=== PATIENT | female | born 1950 | race Caucasian/White ===

== ENCOUNTER 2025-01-16 18:24 | Inpatient (IN) | payer OTHER, SELFPAY ==
[2025-01-16] VITALS (21 sets, daily range): BP systolic 84–110; BP diastolic 32–67; BMI 41.7
--- NOTE | 2025-01-16 13:34 | ED.GENMED ---
History of Present Illness
General
Chief Complaint: Abdominal Pain
Source: patient
Exam Limitations: none
Time Seen by Provider: 01/16/25 13:33
Nursing documentation reviewed up to this point in time: agreed with
History of Present Illness
History of Present Illness:
Patient is a 74-year-old female presented with nausea vomiting constipation and weakness. She denies any prior bowel obstruction or surgery. She complains of a lot of nausea. She denies any fever or chills at home. She does complain of decreased
appetite and does not believe she is drinking enough.
Review of Systems
Review of Systems
Allergies reviewed?: Yes
All Other Systems: ROS reviewed and negative except as documented in HPI and ROS
Constitutional: Denies fever
Cardiac: Reports no symptoms
ABD/GI: Reports nausea, vomiting, constipated and anorexia
: Reports no symptoms
Musculoskeletal: Reports no symptoms
Skin: Reports no symptoms
Psychiatric: Reports no symptoms
Phy Exam
General Physical Exam
General Presentation: no apparent distress
General age: appears stated age
General Skin: warm and dry
General Habitus: elderly
General Mental: alert
General Hydration: dry mucous membranes
Cardiovascular Exam
Cardiovascular Exam: regular rate/rhythm, no murmur and normal peripheral pulses
Pulmonary Exam
Pulmonary Exam: lungs clear and no respiratory distress
Gastrointestinal Exam
Gastrointestinal Exam: soft and other (Nonspecific abdominal tenderness increase in left)
Neurological Exam
Neurological Exam: alert and oriented x3
Musculoskeletal Exam
Musculoskeletal Exam: full ROM
Skin Exam
Skin Exam: normal color and warm/dry
Psychiatric Exam
Psychiatric Exam: normal mood/affect
Course
Orders/Labs/Results
Orders:
Orders
01/16/25 Breakfast
Clear Liquid
At Your Request: Full Participation
Does patient need a safe tray?: No
01/16/25 13:35
IV Insert/Care/Rem.- Treatment PRN
01/16/25 13:53
Ondansetron Injectable [Zofran] 4 mg IV NOW STA
01/16/25 13:55
CT Abd/Pel (IV only)-DH only Urgent
Comment:
Reason For Exam: abd pain/n/v/ constipation
01/16/25 13:56
Electrocardiogram (*1) Stat
Reason for Study: Other
Other Reason for Exam: chest pain
Cardiac Monitoring- Treatment ONCE
EKG- Treatment ONCE
01/16/25 14:11
0.9% Sodium Chloride 1000 ml [Nss] 1,000 ml IV BOLUS
01/16/25 14:13
Complete Blood Count/With Diff Urgent
Comprehensive Metabolic Panel Urgent
Creatine Phosphokinase Urgent
Comment: ADD ON
Lipase Urgent
Troponin I Urgent
01/16/25 14:40
COVID-19 Antigen Urgent
Source: Nasal Swab
Influenza A+B Rapid Molecular Urgent
NIGHAT Source: Nasal Swab
Specimen Description:
01/16/25 16:48
Electrocardiogram (*1) Stat
Reason for Study: Other
Other Reason for Exam: chest pain
EKG- Treatment ONCE
0.9% Sodium Chloride 1000 ml [Nss] 1,000 ml IV BOLUS
01/16/25 16:49
Troponin I Urgent
01/16/25 18:04
Admit/Transfer Patient As Directed
Co-Sign Provider:
Level of Care: Inpatient admission
Assign to:: IMU- Intermediate Care
Physician / Group: Meg
Diagnosis: Sepsis, Colitis
Reason for Hospitalization: IVFs, IV abx
Expected length of stay greater than two midnights?: Yes
ELOS- Estimated Length of Stay in days: 3
I certify the patient meets the requirements for IP care: Yes
PRN Pain Medication Management As Directed
May give lesser potent ordered pain med per pt: Yes
preference::
Protocol:: Medication orders for pain may be administered in a
manner that supports deferring to patient preference
when the pt is:
- Requesting an ordered lesser potent pain medication.
Least to most potent pain medications are defined
as: acetaminophen < NSAID < tramadol < opioids
(morphine, oxycodone, hydromorphone).
- Requesting a lesser dose of the same medication IF
ORDERED.
- Requesting a less intrusive route of administration
if both routes are prescribed by the provider (PO <
IV).
01/16/25 18:05
Code Status As Directed
Resuscitation Status: Full Code
01/16/25 18:07
Pantoprazole [Protonix IV] 40 mg IV NOW STA
01/16/25 18:08
Add On- LAB Urgent
Tests Added?: CPK
01/16/25 18:09
0.9% Sodium Chloride [Nss (Preservative Free)] 10 ml IV NOW STA
01/16/25 18:17
PRN Pain Medication Management As Directed
May give lesser potent ordered pain med per pt: Yes
preference::
Protocol:: Medication orders for pain may be administered in a
manner that supports deferring to patient preference
when the pt is:
- Requesting an ordered lesser potent pain medication.
Least to most potent pain medications are defined
as: acetaminophen < NSAID < tramadol < opioids
(morphine, oxycodone, hydromorphone).
- Requesting a lesser dose of the same medication IF
ORDERED.
- Requesting a less intrusive route of administration
if both routes are prescribed by the provider (PO <
IV).
01/16/25 18:47
Lactic Acid Urgent
01/16/25 19:05
Blood Culture Q30M
NIGHAT Source: Blood/Venous
Specimen Description:
Blood Culture Q30M
NIGHAT Source: Blood/Venous
Specimen Description:
01/16/25 20:00
Urinalysis Reflex To Culture Urgent
Date Specimen was Collected: 01/16/25
Time Specimen was Collected: 15:08
CefTRIAXone [Rocephin] 1,000 mg IV Q24H
01/16/25 20:42
Acetaminophen [Tylenol] 650 mg PO Q4HPRN PRN
Ondansetron Injectable [Zofran] 4 mg IV Q6HPRN PRN
01/16/25 20:42
Activity As Directed
Activity Level: Out of Bed-Early Mobility
With Assistance
ECG as needed As Directed
ECG as needed for:: Chest Pain
I&O [Intake/ Output] As Directed
Frequency: q12h
Vital Signs As Directed
Frequency: Per unit guidelines
Weight As Directed
Frequency: Daily
Ot Eval And Treat Routine
Pt Eval And Treat Routine
Activity Level: Out of Bed-Early Mobility
DX Deep Vein Thrombosis Video Routine
01/16/25 22:00
MetroNIDAZOLE 500 MG/100 ML [Flagyl 500 mg] 100 ml IV Q8H
01/17/25 00:00
Heparin 5,000 units SC Q8
01/17/25 03:45
Urine Microscopic Reflex Cult Urgent
Urine Culture Urgent
NIGHAT Source: U
Specimen Description:
Date Specimen was Collected: 01/16/25
Time Specimen was Collected: 15:08
01/17/25 08:00
Pantoprazole [Protonix IV] 40 mg IV DAILY
01/17/25 08:09
Complete Blood Count/No Diff IN AM
Comprehensive Metabolic Panel IN AM
Hgba1c [Glycohemoglobin (HgbA1c)] IN AM
Magnesium IN AM
Abnormal Lab Results
01/16/25
14:13
WBC 11.2 H 10^3/uL
(4.8-10.8)
Abs Immat Gran (auto) 0.1 H 10^3/uL
(0-0.05)
Absolute Neuts (auto) 10.4 H 10^3/uL
(1.4-6.5)
Absolute Lymphs (auto) 0.4 L 10^3/uL
(1.2-3.4)
Immature Gran % 0.6 H %
(0-0.5)
Neutrophils % 92.7 H %
(42.2-75.2)
Lymphocytes % 3.4 L %
(20.5-51.1)
Sodium 133 L mmol/L
(135-145)
Potassium 3.4 L mmol/L
(3.5-5.1)
Chloride 97 L mmol/L
(98-107)
BUN 21 H mg/dl
(7-17)
Creatinine 1.6 H mg/dL
(0.6-1.0)
Glucose 148 H mg/dl
(70-99)
Total Bilirubin 2.2 H mg/dl
(0.2-1.3)
AST 139 H U/L
(14-36)
ALT 112 H U/L
(0-35)
Creatine Kinase 229 H U/L
(30-135)
Total Protein 6.1 L g/dl
(6.3-8.2)
01/16/25 14:13
01/16/25 14:13
Vital Signs
Initial and Last Documented VS:
Initial Vital Signs
Temp Pulse Resp BP Pulse Ox
99.3 F 110 20 105/67 96
01/16/25 13:28 01/16/25 13:28 01/16/25 13:28 01/16/25 13:28 01/16/25 13:28
Last Documented Vital Signs
Temp Pulse Resp BP Pulse Ox
99 F 90 18 132/53 94
01/20/25 15:07 01/20/25 15:07 01/20/25 15:07 01/20/25 15:07 01/20/25 15:07
MDM/Problems Addressed
MDM/Problems Addressed:
Patient is a 74-year-old female who presented with nausea vomiting constipation weakness. Patient has been hypertensive here dry on exam. She did complain of constipation no prior bowel obstruction or abdominal surgery. She was presented
hypertensive here was given fluids and Zofran. Zofran did help her nausea. Patient had labs which showed a minimally elevated white count increased BUN/creatinine with no prior labs to compare to minimally elevated LFTs. Patient had no chest pain
or cardiac history but she did have some left arm pain no acute findings on EKG troponin is 0.0 3-0 repeat troponin pending. CAT scan done negative for acute infectious findings. Patient continues or to feel weak and with low blood pressure will
admit for further evaluation. Case discussed admitting hospitalist
*Radiology
Radiology exam reviewed: radiology read reviewed
*Pulse Oximetry
Patient hypoxic: no
*Critical Care Note
Total Time (30-74mins, 75-104mins- exclusive of procedures): Not Applicable
ED Attending Note
-
Portions of this chart may have been created with voice recognition software.� Occasional wrong word or��sound alike� substitutions may have occurred due to the inherent limitations of voice recognition software.
Discharge Plan
Departure
Patient Disposition: Admit
Date of Disposition: 01/16/25
Time of Disposition: 17:38
Admit to doctor: hospitalist
Presentation/result/management discussed w/ accepting MD/DO: Hospitalist
Patient with high blood pressure during this ER visit?: No
Condition: Fair
Covid-19: Not Applicable
Discharge Problem:
Acute dehydration, Weakness
Interventions
Interventions:
*Risk Screen - Suicide Last Done: 01/16/25 13:28
*General Assessment Last Done: 01/16/25 13:28
*Neglect/Abuse Screening Last Done: 01/16/25 14:49
*ED- Fall Risk Assessment Last Done: 01/16/25 14:49
*ED COVID-19 Vaccine History Last Done: 01/17/25 04:08
*Nursing Disposition Last Done: 01/17/25 17:19
IQ-Ijkkco-Raywvqznbf Assessment Last Done: 01/16/25 14:49
Discharge Date and Time
Discharge Date/Time: 01/17/25 17:19
[2025-01-16] MEDS: ZOFRAN 4 MG IV (14:12)
[2025-01-16] MEDS: NSS 1000 IV ×2 (14:12→16:51)
[2025-01-16 14:34] LABS: % Basophils 0.3 % (0-2); % Immature Granulocytes 0.6 % (0-0.5); % Lymphocytes 3.4 % (20.5-51.1); % Neutrophils 92.7 % (42.2-75.2); Absolute Immature Granulocytes 0.1 10^3/uL (0-0.05); Absolute Lymphocytes 0.4 10^3/uL (1.2-3.4); Absolute Monocytes 0.3 10^3/uL (0.1-0.6); Absolute Neutrophils 10.4 10^3/uL (1.4-6.5); Hematocrit 39.7 % (37.0-47.0); Hemoglobin 13.2 g/dL (12.0-16.0); Mean Corp Hgb Conc. 33.2 g/dL (33.0-37.0); Mean Corpuscular Hgb 30.3 pg (27.0-31.0); Mean Corpuscular Volume 91.1 fL (81.0-99.0); Mean Platelet Volume 10.3 fL (7.4-10.4); Nucleated Red Blood Cells % 0 %; Platelet Count 171 10^3/uL (130-400); Red Blood Cell Count 4.36 10^6/uL (4.20-5.40); Red Cell Dist. Width 12.3 % (11.5-14.5); White Blood Cell Count 11.2 10^3/uL (4.8-10.8)
[2025-01-16 14:50] LABS: ALT (SGPT) 112 U/L (0-35); AST (SGOT) 139 U/L (14-36); Albumin 3.6 g/dl (3.5-5.0); Alkaline Phosphatase 114 U/L (38-126); Blood Urea Nitrogen 21 mg/dl (7-17); Calcium 9.1 mg/dl (8.4-10.2); Carbon Dioxide 25 mmol/L (22-30); Chloride 97 mmol/L (98-107); Estimated Creatinine Clearance 34 ml/min; Glucose 148 mg/dl (70-99); Lipase 72 U/L (23-300); Potassium 3.4 mmol/L (3.5-5.1); Sodium 133 mmol/L (135-145); Total Bilirubin 2.2 mg/dl (0.2-1.3); Total Protein 6.1 g/dl (6.3-8.2); eGFR 33.84
[2025-01-16 15:18] LABS: COVID-19 Antigen Negative (Negative)
--- NOTE | 2025-01-16 17:39 | HPS.HSE ---
Family Physician
-
Family Physician: Neeraj Villanueva
Chief Complaint
-
Poor Appetite and Vomiting
History of Present Illness
Patient is a 74 y/o female past medical history of morbid obesity who presents with poor appetite and vomiting. Patient states she has not had a bowel movement in about 8-10 days. She reports poor appetite with minimal oral intake. She reports
increased epigastric pressure and belching. Yesterday she had an episode of vomiting with another episode today which prompted her to come to the emergency department. She developed low grade fever while in the emergency department and reports
chills for the past several days. She denies diarrhea.
Medical History
Past Medical History
Past Medical History: Reports Other
Additional Past Medical History:
Hyperlipidemia
Impaired Fasting Glucose
Osteoarthritis
Morbid Obesity Due to Excess Calories
Past Surgical History: Reports Other
Additional Past Surgical History:
Left Breast Surgery
Bilateral Ankle Surgery
Social History
Tobacco: Non-smoker
Alcohol: Daily
Family History
Family History: Not pertinent
Allergies / Home Medications
Allergies reflects when Allergies were last updated in [facility].
Home Medications with original date entered in [facility]
Allergy/Medication List:
Allergies
Allergy/AdvReac Type Severity Reaction Status Date / Time
amoxicillin Allergy Unknown Verified 01/16/25 13:31
bacitracin Allergy Unknown Verified 01/16/25 13:31
[From Polysporin(bacitracin
base)]
polymyxin B Allergy Unknown Verified 01/16/25 13:31
[From Polysporin(bacitracin
base)]
Home Medications
etodolac 300 mg capsule 300 mg PO BID 01/16/25
Review of Systems
-
A 12 point ROS was completed and negative except as noted: Yes
Constitutional: Reports Fever and Chills
Respiratory: Denies Cough or Trouble Breathing
Cardiac: Denies Chest Pain or Palpitations
Abdomen/GI: Reports See HPI
Physical Exam
Vital Signs
Vital Signs
Temp Pulse Resp BP Pulse Ox
100.5 F H 99 24 104/43 93
01/16/25 17:00 01/16/25 17:30 01/16/25 17:30 01/16/25 17:30 01/16/25 17:30
Physical Exam
General: Comfortable, Conversant and Morbidly Obese
HEENT: NormoCephalic, Anicteric and Atraumatic
Respiratory: Clear and Non Labored Respirations
Cardiac: S1/S2, Regular Rhythm and Tachycardia
GI: Soft and Tender (Left side without rebound or guarding)
Rectal: Deferred by Provider
Musculoskeletal: No Clubbing and No Cyanosis
Skin: Warm and Dry
Neuro: Awake, Alert, Oriented and Nonfocal/grossly intact
Psych: Calm
Laboratory Results
-
01/16/25 14:13
01/16/25 14:13
Laboratory Results
Total Bilirubin 2.2 mg/dl (0.2-1.3) H 01/16/25 14:13
AST 139 U/L (14-36) H 01/16/25 14:13
ALT 112 U/L (0-35) H 01/16/25 14:13
Alkaline Phosphatase 114 U/L (38-126) 01/16/25 14:13
Troponin I Cancelled 01/16/25 16:48
Lipase 72 U/L (23-300) 01/16/25 14:13
Abd/Pelvis CT Scan:
1. No significant acute abnormality identified in the abdomen or pelvis, as described above.
2. 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
3. Indeterminate 4.8 cm right hepatic lobe mass. Recommend outpatient workup with dedicated MRI abdomen without and with gadolinium contrast.
Data Reviewed
-
Lab Data: Labs Reviewed by me
Impression/Plan
-
Severe Sepsis secondary to Gastroenteritis vs Colitis
-Blood pressure low upon my evaluation
-Currently receiving 2L NSS - If BP not improved after 2L NSS consider pressors
-Check blood cultures
-Check lactic acid
-Start empiric ceftriaxone and Flagyl
-Allow clear liquids
Acute Kidney Injury
-Stop Etodolac
-Continue IVFs
-Recheck creatinine in AM
Elevated LFTs
-CT scan raises concern for liver mass
-Continue to trend LFTs
-Consider Abd MRI inpatient vs outpatient
Morbid Obesity due to Excess Calories
-Affects all aspects of care
DVT proph: SC Heparin
Code Status: Full Code
[2025-01-16 18:11] LABS: Troponin I 0.026 ng/ml
[2025-01-16 18:40] LABS: Creatine Phosphokinase 229 U/L (30-135)
--- NOTE | 2025-01-16 18:48 | W.PN.UPDATE ---
Update Note
Progress Note Update
This is an addendum to the H&P written by Kierra Meyers on 01/16/2025. Patient seen and examined independently with PA.
74-year-old female presenting with feeling unwell for 8 to 10 days with poor p.o. intake and constipation. Vomiting yesterday and today and abdominal pain on the left.
Also with shortness of breath and hypoxemia. Developed some chest pressure after coming here with left arm pain.
Patient with fever of 100.5, Leukocytosis, tachypnea, tachycardia.
Labs show ADAIR creatinine 1.6, hypokalemia, transaminitis.
COVID and influenza are negative. CT abdomen pelvis shows no significant acute abnormality in the abdomen or pelvis. There is an indeterminate 4.8 cm right hepatic lobe mass. Leadpipe appearance of the left colon likely due to chronic
inflammation.
Urinalysis is pending.
EKG shows normal sinus rhythm, LVH. Troponin of 0.03, trending down.
Patient with sepsis suspect infectious colitis versus gastroenteritis with ileus. Clears, Check blood cultures. IV fluids. Ceftriaxone/Flagyl.
Hypokalemia secondary to vomiting. Replete potassium.
Check chest x-ray due to shortness of breath.
Transaminitis likely secondary to hypotension versus secondary to liver mass. Patient follow-up with MRI.
[2025-01-16] MEDS: PROTONIX IV 40 MG IV (19:06)
[2025-01-16] MEDS: NSS with KCL 40 MEQ 1000 IV (20:56)
[2025-01-16] MEDS: ROCEPHIN 1000 MG IV (20:57)
[2025-01-16] MEDS: STERILE WATER FOR INJECTION IV (20:57)
[2025-01-16] MEDS: FLAGYL 500 MG 100 IV (20:57)
[2025-01-17] VITALS (31 sets, daily range): BP systolic 79–138; BP diastolic 35–108; BMI 41.4
[2025-01-17] MEDS: HEPARIN 5000 UNITS SC ×3 (00:47→23:22)
[2025-01-17] MEDS: ZOFRAN 4 MG IV (03:00)
[2025-01-17] MEDS: OFIRMEV 100 IV (03:21)
[2025-01-17 03:53] LABS: Urine Albumin 2+ (Neg - Trace); Urine Bilirubin 2+ (Negative); Urine Character Clear (Clear); Urine Color Amber; Urine Glucose Negative (Negative); Urine Ketone Negative (Negative); Urine Leukocyte 1+ (Negative); Urine Nitrite Negative (Negative); Urine Occult Blood Negative (Negative); Urine Urobilinogen 2+ (Neg - 1+)
[2025-01-17 04:00] LABS: Urine Squamous Cell None seen /LPF (Few)
[2025-01-17 04:01] LABS: Urine Bacteria Few (Negative); Urine Red Blood Cell None Seen /HPF (0-2)
[2025-01-17] MEDS: MIRALAX 17 GRAMS PO (04:18)
[2025-01-17] MEDS: COLACE 100 MG PO (04:18)
--- NOTE | 2025-01-17 05:49 | PTCARENOTE ---
Assumed care of patient at aprox 2300 last night. Pt with episode of epigastric pain, rigors with vomiting. Temp 103.2. IV ofirmev given. Fever resolved. Pt also has not voided since she has gotten to ER. Bladder scanned for 400ml. Straight cath'd
for 350 of dark demarco urine. Pt on 3L as she does drop into mid 80's when sleeping. Instructed to ring for assistance.
[2025-01-17] MEDS: FLAGYL 500 MG 100 IV ×2 (06:05→21:05)
[2025-01-17] MEDS: NSS with KCL 40 MEQ 1000 IV ×2 (06:45→18:20)
[2025-01-17 08:32] LABS: Hematocrit 34.5 % (37.0-47.0); Hemoglobin 11.4 g/dL (12.0-16.0); Mean Corpuscular Hgb 30.7 pg (27.0-31.0); Mean Platelet Volume 10.8 fL (7.4-10.4); Platelet Count 138 10^3/uL (130-400); Red Blood Cell Count 3.71 10^6/uL (4.20-5.40); Red Cell Dist. Width 12.7 % (11.5-14.5)
[2025-01-17 08:46] LABS: ALT (SGPT) 130 U/L (0-35); AST (SGOT) 127 U/L (14-36); Alkaline Phosphatase 93 U/L (38-126); Blood Urea Nitrogen 28 mg/dl (7-17); Calcium 8.2 mg/dl (8.4-10.2); Carbon Dioxide 21 mmol/L (22-30); Chloride 105 mmol/L (98-107); Estimated Creatinine Clearance 32 ml/min; Glucose 103 mg/dl (70-99); Potassium 4.6 mmol/L (3.5-5.1); Sodium 135 mmol/L (135-145); Total Bilirubin 1.1 mg/dl (0.2-1.3); Total Protein 5.3 g/dl (6.3-8.2); eGFR 31.47
--- NOTE | 2025-01-17 10:07 | W.PN.HOSP.TC ---
Addendum entered and electronically signed by David Mcfarland MD 01/17/25 15:42:
Pt is holding BP steady. Will transfer to tele
Original Note:
Today's Communication/Plan
-
stool studies
continue IVF
Assessment / Plan
Assessment / Plan
Severe Sepsis secondary to Gastroenteritis vs Colitis
etiology not determined
CT scan: 1. No significant acute abnormality identified in the abdomen or pelvis, as described above.
2. 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
3. Indeterminate 4.8 cm right hepatic lobe mass. Recommend outpatient workup with dedicated MRI abdomen without and with gadolinium contrast.
-Blood pressure remains borderline low
-Currently receiving 2L NSS - BP remains in 97/40 range
-Check blood cultures
-lactic acid 1.0
-Continue empiric ceftriaxone and Flagyl
-Allow clear liquids
follow BP, may yet need pressors
Acute Kidney Injury
-Stop Etodolac
-Continue IVFs
-BUN/Creat 28/1.7
Elevated LFTs
Bili 2.2-->1.1
-CT scan raises concern for liver mass
-Continue to trend LFTs
-Consider Abd MRI inpatient vs outpatient
Morbid Obesity due to Excess Calories
-Affects all aspects of care
DVT proph: SC Heparin
Code Status: Full Code
Anticipated Discharge: > 48 hours
Subjective/Interval History
-
Date of Service: January 17, 2025
Still with abd pain, vomited last night, as per pt - no significant BM in 10 days
Objective Data
-
Labs:
Laboratory Results
01/17/25
08:09
WBC 10.0
Hgb 11.4 L
Hct 34.5 L
Plt Count 138
Sodium 135
Potassium 4.6 D
Chloride 105
Carbon Dioxide 21 L
BUN 28 H
Creatinine 1.7 H
Glucose 103 H
Calcium 8.2 L
Total Bilirubin 1.1 D
AST 127 H
ALT 130 H
Alkaline Phosphatase 93
Vital Signs:
Vital Signs
Temp Pulse Resp BP Pulse Ox
98.3 F 93 22 97/40 97
01/17/25 05:00 01/17/25 08:00 01/17/25 08:00 01/17/25 07:57 01/17/25 08:00
I&O
01/16/25 01/17/25 01/18/25
05:59 06:59 06:59
Intake Total
Output Total
Balance
Review of Systems
-
History Source: Patient and Coordinated Provider
Constitutional: Reports Fever (103.2)
Respiratory: Reports No Symptoms
Cardiac: Reports No Symptoms
Abdomen/GI: Reports Abdominal Pain, Vomiting (last night) and Constipated
Neuro: Reports No Symptoms
Physical Exam
-
General: Well Developed, Well Nourished and No Apparent Distress
HEENT: Normocephalic, Atraumatic and Moist Mucous Membranes
Respiratory: Clear to Auscultation; Negative Wheezes, Rales or Rhonchi
Cardiac: Regular Rhythm and S1/S2
GI: Soft, Normal Bowel Sounds (active BS, borderline hyperactive), Tender (mild) and Distended
Musculoskeletal: No Clubbing, No Cyanosis and No Edema
[2025-01-17] MEDS: PROTONIX IV 40 MG IV (12:38)
[2025-01-17] MEDS: STERILE WATER FOR INJECTION 10 ML IV ×2 (12:39→21:08)
[2025-01-17 13:05] LABS: Glycohemoglobin (HgbA1c) 5.5 % (4.0-5.6)
[2025-01-17 15:22] LABS: Blood Urea Nitrogen 24 mg/dl (7-17); Calcium 8.2 mg/dl (8.4-10.2); Carbon Dioxide 25 mmol/L (22-30); Chloride 106 mmol/L (98-107); Estimated Creatinine Clearance 42 ml/min; Glucose 138 mg/dl (70-99); Potassium 4.7 mmol/L (3.5-5.1); Sodium 137 mmol/L (135-145); eGFR 43.42
[2025-01-17] MEDS: HEPARIN SC (16:00)
[2025-01-17] MEDS: NSS (PRESERVATIVE FREE) IV (20:00)
[2025-01-17] MEDS: FLAGYL 500 MG IV ×2 (20:00→21:09)
[2025-01-17] MEDS: TYLENOL 650 MG PO (20:05)
[2025-01-17] MEDS: ROCEPHIN 1000 MG IV (21:08)
[2025-01-17] MEDS: FLUSH (NSS) 1 FLUSH IV (21:11)
[2025-01-18] MEDS: TYLENOL 650 MG PO ×3 (03:16→16:52)
[2025-01-18 03:55] VITALS: BP 119/52
[2025-01-18] MEDS: NSS with KCL 40 MEQ 1000 IV (04:27)
[2025-01-18] MEDS: FLAGYL 500 MG 100 IV ×3 (05:26→21:21)
[2025-01-18 06:00] VITALS: BMI 41.8
[2025-01-18 07:45] LABS: Hematocrit 32.1 % (37.0-47.0); Hemoglobin 10.7 g/dL (12.0-16.0); Mean Corp Hgb Conc. 33.3 g/dL (33.0-37.0); Mean Corpuscular Hgb 30.6 pg (27.0-31.0); Mean Corpuscular Volume 91.7 fL (81.0-99.0); Mean Platelet Volume 11.7 fL (7.4-10.4); Platelet Count 130 10^3/uL (130-400); White Blood Cell Count 8.2 10^3/uL (4.8-10.8)
[2025-01-18 08:04] LABS: ALT (SGPT) 111 U/L (0-35); AST (SGOT) 80 U/L (14-36); Albumin 2.6 g/dl (3.5-5.0); Alkaline Phosphatase 92 U/L (38-126); Blood Urea Nitrogen 18 mg/dl (7-17); Calcium 8.2 mg/dl (8.4-10.2); Carbon Dioxide 20 mmol/L (22-30); Chloride 110 mmol/L (98-107); Estimated Creatinine Clearance 71 ml/min; Glucose 121 mg/dl (70-99); Potassium 4.8 mmol/L (3.5-5.1); Sodium 136 mmol/L (135-145); Total Bilirubin 0.6 mg/dl (0.2-1.3); Total Protein 4.9 g/dl (6.3-8.2); eGFR > 60.00
[2025-01-18 08:12] LABS: % Basophils 0.5 % (0-2); % Eosinophils 0.7 % (0-6); % Immature Granulocytes 0.5 % (0-0.5); % Lymphocytes 8.6 % (20.5-51.1); % Monocytes 8.1 % (1.7-9.3); % Neutrophils 81.6 % (42.2-75.2); Absolute Eosinophils 0.1 10^3/uL (0-0.7); Absolute Lymphocytes 0.7 10^3/uL (1.2-3.4); Absolute Monocytes 0.7 10^3/uL (0.1-0.6); Absolute Neutrophils 6.7 10^3/uL (1.4-6.5); Nucleated Red Blood Cells % 0 %
[2025-01-18 08:23] VITALS: BP 112/52
[2025-01-18] MEDS: PROTONIX IV 40 MG IV (09:11)
[2025-01-18] MEDS: NSS (PRESERVATIVE FREE) 10 ML IV (09:11)
[2025-01-18] MEDS: HEPARIN SC (09:12)
--- NOTE | 2025-01-18 09:15 | CON.GI ---
Addendum entered and electronically signed by Anne Alcantar MD 01/18/25 12:03:
I saw and examined the patient.
The CRACKER DOUGH MIXER or PA's note was reviewed and I agree with the note.
Comment:
Pt is a 74 y/o woman with a hx of hyperlipidemia, polyps, admitted with constipation, poor appetite, chest pain, overall not feeling well. Lives with daughter and grandson and grandson has been sick with viral syndrome, strep. No travel, no
rashes, chronic joint pains. CT scan with solitary liver lesion, presumed benign. Also 'lead pipe' appearance of left colon but no diarrhea, only constipation. She has had 3 colonoscopies in the past, last 5 yrs ago for colon polyp surveillance.
Blood cultures show gram positive cocci in chains, clusters
abd: soft, nontender
impression:
chest pain,
nausea
decreased appetite
liver lesion
colon polyps
constipation
positive blood cultures with gram positives
abnl liver tests
plan:
clears
await blood cultures
hep panel although liver tests likely related to fatty liver
consider ID
outpatient colonoscopy
MRI imaging of liver if source of infection not found. Otherwise can be outpatient
Original Note:
Consultation
-
Date/Time Consultation Requested: 01/17/25915
Date/Time Consultation Performed: 01/18/2515
Requesting Provider: Dr. Mcfarland
Performing Provider: Dr. Alcantar/LEAH Beltrán
Reason for Consultation: n/v/abd pain, elevated LFT, liver mass
Medical History
Chief Complaint / HPI
Chief Complaint: fatigue, n/v/abd pain
History of Present Illness:
74-year-old female with past medical history of hyperlipidemia, morbid obesity, osteoarthritis, IBS, colon polyps presents to the emergency room with 10-day history of constipation, poor appetite followed by fatigue, weakness nausea, vomiting and
abdominal pain. She presented to the emergency room on 01/16/2025 with the following complaints as well as some epigastric discomfort and left lower quadrant discomfort. Asked to evaluate for the same. The patient states that she has always had 'a
touch of irritable bowel'. And has had intermittent episodes of constipation however she states that her bowel movements have been soft and regular recently. She states that approximately 10 days ago was her last bowel movement. Prior to that she
had some pebble-like stools. After a couple days and approximately 7 days ago she started having increased fatigue and weakness. Poor appetite. She stopped eating solid foods but was able to have liquids. Then approximately 4 days ago started
having nausea and vomiting which was bilious in nature yellow/green. She then had some epigastric 'pressure' she also had this radiation down into her mid abdomen. This was also associated with left lower quadrant discomfort that was separate from
her discomfort in the epigastric mid abdomen area. She was febrile in the emergency room with a temperature of 100.5, leukocytosis and tachycardia. Her Tmax was 103.2 degrees. She did have a fever last night of 102.3 degrees. She is afebrile
this morning. Flu and COVID were negative. She was started on IV fluids. She had an ADAIR with creatinine 1.7 this is now down to 0.8. Given Colace, MiraLAX. Started on ceftriaxone and Flagyl. She started having bowel movements (formed) which
made her left lower quadrant pressure and discomfort feel somewhat better. She was found to have a total bilirubin of 2.2, AST 139, ALT of 112 and alk phos of 229. Currently total bilirubin 0.6, AST 80, ALT 111, alk phos 92. CT of the abdomen and
pelvis with IV contrast showed no significant acute abnormality identified in the abdomen and pelvis. Leadpipe appearance of the left colon likely sequela of chronic inflammation. Indeterminate 4.8 cm right hepatic lobe mass. Recommend dedicated
MRI of the abdomen and pelvis with and without alex. Blood cultures x 2 positive. Gram-positive cocci in chains. Urine culture pending. Stool cultures pending. At the present time patient states that she is feeling weak, with some tenderness in
the left lower quadrant. She is tolerating clears at the present time. No further nausea or vomiting.
Past Medical History
Past Medical History: Hypercholesterolemia and Other (osteoarthritis, colon polyps, obesity, IBS)
Past Surgical History: Other (Benign breast lesions removed, bilateral foot surgery)
Social History
Tobacco: Non-Smoker
Alcohol: Occasional (1-3 a month)
Drug: None
Living: With Family
Family History
Family History: Other (No family history of gastrointestinal malignancy or IBD)
Allergies / Home Medications
Allergy/AdvReac Type Severity Reaction Status Date / Time
amoxicillin Allergy Unknown Verified 01/16/25 13:31
bacitracin Allergy Unknown Verified 01/16/25 13:31
[From Polysporin(bacitracin
base)]
polymyxin B Allergy Unknown Verified 01/16/25 13:31
[From Polysporin(bacitracin
base)]
�Medication �Instructions �Recorded
etodolac 300 mg capsule 300 mg PO BID 01/16/25
acetaminophen 500 mg tablet 500 mg PO DAILYPRN PRN mild pain 01/17/25
bisacodyl 5 mg tablet,delayed 5 mg PO BID 01/17/25
release (Dulcolax (bisacodyl))
cholecalciferol (vitamin D3) 50 50 mcg PO QPM 01/17/25
mcg (2,000 unit) tablet
loratadine 10 mg tablet (Claritin) 10 mg PO QPM 01/17/25
turmeric 400 mg capsule 800 mg PO QPM 01/17/25
Review of Systems
-
All other systems: A 12 pt ROS was Negative except as stated above in HPI
Vital Signs
Temp Pulse Resp BP Pulse Ox
98.1 F 86 18 112/52 95
01/18/25 08:23 01/18/25 08:23 01/18/25 08:23 01/18/25 08:23 01/18/25 08:23
Physical Exam
Exam
General: No Apparent Distress
HEENT: Anicteric
Respiratory: Clear (Anterior)
Cardiac: Regular Rhythm
GI: Soft, Non Distended, Normal Bowel Sounds and Tender (Left lower quadrant tenderness)
Skin: Warm and Dry
Neuro: AO x 3
Psych: Calm
Results
WBC 8.2 10^3/uL (4.8-10.8) 01/18/25 06:12
Hgb 10.7 g/dL (12.0-16.0) L 01/18/25 06:12
Hct 32.1 % (37.0-47.0) L 01/18/25 06:12
MCV 91.7 fL (81.0-99.0) 01/18/25 06:12
Plt Count 130 10^3/uL (130-400) 01/18/25 06:12
Absolute Neuts (auto) 6.7 10^3/uL (1.4-6.5) H 01/18/25 06:12
Sodium 136 mmol/L (135-145) 01/18/25 06:12
Potassium 4.8 mmol/L (3.5-5.1) 01/18/25 06:12
Chloride 110 mmol/L (98-107) H 01/18/25 06:12
Carbon Dioxide 20 mmol/L (22-30) L 01/18/25 06:12
BUN 18 mg/dl (7-17) H 01/18/25 06:12
Creatinine 0.8 mg/dL (0.6-1.0) 01/18/25 06:12
Calcium 8.2 mg/dl (8.4-10.2) L 01/18/25 06:12
Total Bilirubin 0.6 mg/dl (0.2-1.3) 01/18/25 06:12
AST 80 U/L (14-36) H 01/18/25 06:12
ALT 111 U/L (0-35) H 01/18/25 06:12
Alkaline Phosphatase 92 U/L (38-126) 01/18/25 06:12
Lipase 72 U/L (23-300) 01/16/25 14:13
Diagnostic Image Results:
CT of the abdomen and pelvis with IV contrast:
1. No significant acute abnormality identified in the abdomen or pelvis, as described above.
2. 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
3. Indeterminate 4.8 cm right hepatic lobe mass. Recommend outpatient workup with dedicated MRI abdomen without and with gadolinium contrast.
Up-to-date CT equipment and radiation dose reduction techniques were employed. CTDIvol: 18.4 - 18.5 mGy. DLP: 1925 mGy-cm.
Electronically signed by Charles Willson, 01/16/2025 4:24 PM
Prior GI Procedures:
EGD: never
Colonoscopy: 12/18/2019 (Dr. Stubbs) - The examined portion of the ileum was normal.
- One 7 mm polyp in the transverse colon, removed with a
hot snare. Resected and retrieved.
- One 4 mm polyp in the rectum, removed with a hot
snare. Resected and retrieved.
- Diverticulosis in the sigmoid colon and in the
descending colon.
COLO 07/12/2015 (Abigail) - Non-thrombosed external hemorrhoids found on perianal
exam.
- The examined portion of the ileum was normal.
- One 1 mm polyp in the cecum. Resected and retrieved.
- One 1 mm polyp in the ascending colon. Resected and
retrieved.
- One 2 mm polyp at the hepatic flexure. Resected and
retrieved.
- Two 2 mm polyps in the transverse colon. Resected and
retrieved.
- One 3 mm polyp in the descending colon. Resected and
retrieved.
- One 4 mm polyp in the sigmoid colon. Resected and
retrieved.
- One 2 mm polyp in the sigmoid colon. Resected and
retrieved.
- Three diminutive polyps in the rectum. Resected and
retrieved.
- Diverticulosis in the sigmoid colon.
Assessment / Plan
-
74-year-old female with past medical history of hyperlipidemia, morbid obesity, osteoarthritis, IBS, colon polyps presents to the emergency room with 10-day history of constipation, poor appetite followed by fatigue, weakness nausea, vomiting and
abdominal pain. She presented to the emergency room on 01/16/2025 with the following complaints as well as some epigastric discomfort and left lower quadrant discomfort. Asked to evaluate for the same. Nausea and vomiting resolved, tolerating clear
liquid diet. Had bowel movement after Colace and MiraLAX. Still with left lower quadrant tenderness. Initially with leukocytosis now improved. Continues on ceftriaxone and Flagyl. Tmax of 103.2 on 01/17/2025 at 0 323. Last evening Tmax 102.3 at
1949. Afebrile this morning. Still with left lower quadrant tenderness. LFTs improving, Initially total bilirubin 2.2, AST 139, ALT 112 and alk phos 114. Now total bilirubin 0.6, AST 80, ALT 111, alk phos 92. CT abdomen and pelvis with IV
contrast shows indeterminate 4.8 cm right hepatic lobe mass. Recommend dedicated MRI abdomen with and without gadolinium contrast.
Impression:
Bacteremia-> gram positive cocci in pairs/chains
--> Discussed with IM
Nausea/vomiting-> improved
Constipation-> 10 days, now having BM after Miralax and colace
LLQ pain-> slightly improved with BM
Right hepatic lobe mass 4.8 cm -> needs MRI with and without alex
Plan:
-Clears as tolerated
-Continue Miralax
-Trend LFTs
-Await Hepatitis panel
-Await blood culture, urine culture, stool culture
-May need ID consultation
-Will need colonoscopy 8 weeks after DC
-Will need MRI abdomen with and without contrast after DC.
-Further recommendations to be forthcoming.
-
-
Thank you for consultation and allowing me to participate in the patient's care. Please call the communications associate GI physician during the after hours with any questions or concerns.
[2025-01-18 11:48] VITALS: BP 141/68; PULSE 93; O2SAT 95
--- NOTE | 2025-01-18 15:30 | W.PN.HOSP.TC ---
Today's Communication/Plan
-
cont ABX
finalize blood and stool cultures
Assessment / Plan
Assessment / Plan
Pt is a 74 year old female
Severe Sepsis secondary to Gastroenteritis vs Colitis (POA)--apprec GI--cont rocephin/metronidazole--blood cultures positive for strep species--await final identification--repeat until clear--consider ID consult--diet as per GI--hold on MRI of liver
(liver with 4.8 cm right hepatic lobe mass by CT scan)--also likely chronic inflammation of left colon
Acute Kidney Injury--Stop Etodolac--s/p IVF--creat resolved from 1.3 to 0.8
Elevated LFTs--bili back to normal, LFTs decreasing--could be fatty liver--Consider Abd MRI outpatient
Morbid Obesity due to Excess Calories--Affects all aspects of care
DVT proph--SC Heparin
Code Status--Full Code
Anticipated Discharge: 24 - 48 hours
Subjective/Interval History
-
Date of Service: January 18, 2025
pt feeling better after a nap
Objective Data
-
Labs:
Laboratory Results
01/18/25
06:12
WBC 8.2
Hgb 10.7 L
Hct 32.1 L
Plt Count 130
Sodium 136
Potassium 4.8
Chloride 110 H
Carbon Dioxide 20 L
BUN 18 H
Creatinine 0.8
Glucose 121 H
Calcium 8.2 L
Total Bilirubin 0.6
AST 80 H
ALT 111 H
Alkaline Phosphatase 92
Vital Signs:
max temp for 24 hours
01/17/25
03:23
Temp 103.2 F H
Vital Signs
Temp Pulse Resp BP Pulse Ox
98 F 94 18 141/68 98
01/18/25 11:48 01/18/25 11:48 01/18/25 11:48 01/18/25 11:48 01/18/25 11:48
I&O
01/17/25 01/18/25 01/19/25
06:59 06:59 06:59
Intake Total 1100 / 1100
Output Total
Balance 1100 / 1100
Review of Systems
-
All other systems: Reviewed and negative
Physical Exam
-
General: Well Developed, Well Nourished and No Apparent Distress
HEENT: Normocephalic and Atraumatic; Negative Oxygen
Respiratory: Clear to Auscultation; Negative Wheezes or Rhonchi
Cardiac: Regular Rhythm and S1/S2; Negative Murmur
GI: Soft, Nontender, Nondistended and Normal Bowel Sounds
Musculoskeletal: No Clubbing, No Cyanosis and No Edema
Neuro: Awake and Alert
Psych: Calm
--- NOTE | 2025-01-18 15:32 | CM ---
Patient seen at bedside with physician and patient son. Patient stated that she lives with her daughter and grandson in a 2 story home. Patient has no DME and is independent of her ADL's and IADL's. Patient stated that her PCP is Dr. Villanueva and she
uses the [facility] on [address]. CM will continue to follow for discharge planning needs.
Plan; home with no needs vs home with VN pending assessments
[2025-01-18 15:47] VITALS: BP 143/63
[2025-01-18] MEDS: HEPARIN 5000 UNITS SC (16:51)
[2025-01-18 18:44] LABS: Hepatitis B Surface Antigen Negative (Negative)
[2025-01-18 19:02] LABS: Hepatitis B Surface Antibody Negative; Hepatitis C Antibody Negative (Negative)
[2025-01-18 19:43] VITALS: BP 139/67
[2025-01-18 20:44] LABS: Hepatitis A IgM Antibody Negative (Negative); Hepatitis B Core Ab, IgM Negative (Negative)
[2025-01-18] MEDS: ROCEPHIN 1000 MG IV (21:20)
[2025-01-18] MEDS: STERILE WATER FOR INJECTION 10 ML IV (21:21)
[2025-01-18 23:27] VITALS: BP 154/88
[2025-01-19] VITALS (7 sets, daily range): BP systolic 128–149; BP diastolic 62–81; PULSE 86; BMI 41.5
[2025-01-19] MEDS: TYLENOL 650 MG PO ×2 (00:02→17:54)
[2025-01-19] MEDS: HEPARIN 5000 UNITS SC ×4 (00:02→23:45)
[2025-01-19] MEDS: FLAGYL 500 MG 100 IV ×3 (06:06→21:43)
[2025-01-19 06:44] LABS: Hematocrit 34.5 % (37.0-47.0); Hemoglobin 11.4 g/dL (12.0-16.0); Mean Corpuscular Hgb 30.2 pg (27.0-31.0); Mean Corpuscular Volume 91.5 fL (81.0-99.0); Mean Platelet Volume 11.3 fL (7.4-10.4); Platelet Count 158 10^3/uL (130-400); Red Blood Cell Count 3.77 10^6/uL (4.20-5.40); Red Cell Dist. Width 13.2 % (11.5-14.5); White Blood Cell Count 9.3 10^3/uL (4.8-10.8)
[2025-01-19 07:29] LABS: ALT (SGPT) 91 U/L (0-35); AST (SGOT) 49 U/L (14-36); Albumin 2.9 g/dl (3.5-5.0); Alkaline Phosphatase 106 U/L (38-126); Blood Urea Nitrogen 13 mg/dl (7-17); Calcium 8.6 mg/dl (8.4-10.2); Carbon Dioxide 22 mmol/L (22-30); Chloride 105 mmol/L (98-107); Direct Bilirubin 0.2 mg/dl (0.0-0.4); Estimated Creatinine Clearance 94 ml/min; Glucose 123 mg/dl (70-99); Magnesium 2.1 mg/dl (1.6-2.3); Potassium 4.1 mmol/L (3.5-5.1); Sodium 137 mmol/L (135-145); Total Bilirubin 0.8 mg/dl (0.2-1.3); Total Protein 5.3 g/dl (6.3-8.2); eGFR > 60.00
[2025-01-19] MEDS: PROTONIX IV 40 MG IV (08:14)
[2025-01-19] MEDS: NSS (PRESERVATIVE FREE) 10 ML IV (08:14)
--- NOTE | 2025-01-19 10:06 | PN.CDI ---
CDI
- -
CDI:
Physician Documentation Request
Admit Date: 01/16/25 18:24
Dear Doctor Stacy,
Please review the following and provide your response in the progress notes.
Clinical Indicators:
The diagnosis of ileus was documented on 01/16 PN Update note but is not consistently noted in subsequent documentation.
- Patient admit into ER with nausea, vomiting, and constipation
- 01/16 Update note 'Patient with sepsis suspect infectious colitis versus gastroenteritis with ileus'
- 01/18 PN 'Severe Sepsis secondary to Gastroenteritis vs Colitis (POA)'
Please clarify the following:
____ - Ileus was present on admission and is now resolved.
____ - Ileus was present on admission and is still being monitored, evaluated or treated
____ - Ileus was ruled out
____ - Ileus is still a likely, suspected, probable diagnosis
____ - Other (please specify)
Use of terms such as suspected, likely, concern for, or probable (associated with a specific diagnosis that is being evaluated, monitored, or treated as if it exists) are acceptable and can be coded in the inpatient setting, when documented at the
time of discharge.
Thank you,
Lala Wesley RN
CDI Specialist
Please use your independent medical judgment in providing your response.
--- NOTE | 2025-01-19 10:29 | W.PN.GI.CBS2 ---
Addendum entered and electronically signed by Abbie Salgado DO 01/19/25 13:46:
Patient seen and examined independently of the PROCESSING [employer] SUPERVISOR. I agree with her note with my additions below
Promise is improving. She is moving her bowels now and her labs are improving. She is hungry and wants to eat a piece of toast. Her nausea and vomiting have resolved and she is tolerating a clear liquid diet well. She did have a bowel movement x
2 today with no blood. Her labs have also significantly improved with improvement in leukocytosis, improvement in liver enzyme and bilirubin. Blood cultures from yesterday are no growth in 24 hours after having 2 positive Streptococcus blood
cultures back on 01/16/2025.Stool culture including WBCs were negative, no C. difficile was checked and she was not having diarrhea but more constipation for the last 10 days.
# Bacteremia -
Gram Positive Cocci in chains
-Blood cultures have cleared today with no growth in 24 hours
--Patient on empiric antibiotics but unclear source as this is not a common GI source. More likely found in endocarditis, skin infections, pneumonia
Constipation x 10 days
--Unclear cause. Patient is not on a regimen outpatient and did start fiber Gummies at the onset
--Needs a better bowel regimen currently she is moved twice today
--And would continue the MiraLAX. You do not need Colace on top of MiraLAX they are all softeners
# Left lower quadrant pain improved but not yet resolved after having bowel movements
--Will advance diet to low residue
# Right hepatic lobe lesion 4.8 cm -outpatient MRI
Patient to follow-up with Debbie on 02/22/2025 at 1130. Discussed with family.
GI will sign off. Continue bowel regimen and advance diet as tolerated. Please call us back if she does not tolerate well
Original Note:
Today's Communication / Plan
-
As per plan
Assessment / Plan
-
74-year-old female with past medical history of hyperlipidemia, morbid obesity, osteoarthritis, IBS, colon polyps presents to the emergency room with 10-day history of constipation, poor appetite followed by fatigue, weakness nausea, vomiting and
abdominal pain. She presented to the emergency room on 01/16/2025 with the following complaints as well as some epigastric discomfort and left lower quadrant discomfort. Asked to evaluate for the same. Nausea and vomiting resolved, tolerating clear
liquid diet. Had bowel movement after Colace and MiraLAX. Still with left lower quadrant tenderness. Initially with leukocytosis now improved. Continues on ceftriaxone and Flagyl. Tmax of 103.2 on 01/17/2025 at 0 323. Last evening Tmax 102.3 at
1949. Afebrile this morning. Still with left lower quadrant tenderness. LFTs improving, Initially total bilirubin 2.2, AST 139, ALT 112 and alk phos 114. Now total bilirubin 0.6, AST 80, ALT 111, alk phos 92. CT abdomen and pelvis with IV
contrast shows indeterminate 4.8 cm right hepatic lobe mass. Recommend dedicated MRI abdomen with and without gadolinium contrast.
Impression:
Bacteremia-> strep, repeat blood cultures pending
--> Continues on ceftriaxone and Flagyl
Nausea/vomiting-> resolved. Tolerating clear liquid diet. Would like to try some toast. Discussed with internal medicine would be okay with advancing diet.
Constipation-> 10 days, now having BM after Miralax and colace. Stool studies negative.
LLQ pain-> resolved after having bowel movement
Right hepatic lobe mass 4.8 cm -> needs MRI with and without alex. Will arrange as outpatient. Follow-up arranged on 02/22/2025 at 11:30 AM
Plan:
-Okay to advance diet, discussed with internal medicine
-Continue Miralax as needed only. Patient now having bowel movements
-Trend LFTs, improving.
-Will need colonoscopy 8 weeks after DC
-Will need MRI abdomen with and without contrast after DC.
-Follow-up after discharge on 02/22/2025 at 1130 with LEAH Jansen
Subjective
Subjective
Date of Service: January 19, 2025
Patient states she feels 'blah'. Tolerating clear liquid diet. Moving bowels at this point. Previously had been constipated for 9 days. Stool studies all negative. No abdominal discomfort. LFTs trending down, AST 49 (down from 80), ALT 91 down
from 111). Temp 99.2. Blood cultures x 2 positive for strep. Continues on ceftriaxone and Flagyl. Repeat blood cultures pending. Does not have much of an appetite however feels that she would like to try some toast with her coffee. Has a
headache, usually drinks 2 cups of tea and 2 types of coffee a day. Has not had this in a couple days.
Objective
Data Reviewed
Laboratory Data:
Laboratory Results
01/19/25 05:52
01/19/25 05:52
Laboratory Results
Magnesium 2.1 mg/dl (1.6-2.3) 01/19/25 05:52
Total Bilirubin 0.8 mg/dl (0.2-1.3) 01/19/25 05:52
AST 49 U/L (14-36) H 01/19/25 05:52
ALT 91 U/L (0-35) H 01/19/25 05:52
Alkaline Phosphatase 106 U/L (38-126) 01/19/25 05:52
Lipase 72 U/L (23-300) 01/16/25 14:13
Vital Signs and I&O:
Vital Signs
Temp Pulse Resp BP Pulse Ox
99.2 F 83 18 128/62 95
01/19/25 07:20 01/19/25 07:20 01/19/25 07:20 01/19/25 07:20 01/19/25 07:20
I&O
01/18/25 01/19/25 01/20/25
06:59 06:59 06:59
Intake Total 1100 / 1100 240 / 240
Balance 1100 / 1100 240 / 240
Physical Exam
Physical Exam
HEENT: Anicteric
Cardiology: Normal Sinus Rhythm
Pulmonary: Clear
GI: Soft, Non Distended, Non Tender and Normal Bowel Sounds
Neuro: Non Focal
[2025-01-19] MEDS: MYLICON 80 MG PO (13:01)
--- NOTE | 2025-01-19 13:55 | W.PN.HOSP.TC ---
Addendum entered and electronically signed by Kathy Kumar MD 01/19/25 16:06:
ileus was ruled out
Original Note:
Today's Communication/Plan
-
GasX
await strep identification
possible ID consult
Assessment / Plan
Assessment / Plan
Pt is a 74 year old female
Severe Sepsis secondary to Gastroenteritis vs Colitis (POA)--apprec GI--cont rocephin/metronidazole---tolerating diet as per GI--hold on MRI of liver (liver with 4.8 cm right hepatic lobe mass by CT scan)--to be done as outpt--also likely chronic
inflammation of left colon
strep bacteremia--specific ID of bacteria not yet known--called micro lab, hoping to have an answer today, if not, will check daily until identification is found--repeat blood cultures until neg--consideration for ID consult, ashlyn if not
contaminant--possibly oral related (dental abscess being worked on since 08/2024 per pt and son)
Acute Kidney Injury--Stop Etodolac--s/p IVF--creat resolved from 1.3 to 0.8
Elevated LFTs--bili back to normal, LFTs decreasing--could be fatty liver-- Abdominal MRI as outpatient
Morbid Obesity due to Excess Calories--Affects all aspects of care
DVT proph--SC Heparin
Code Status--Full Code
updated son at bedside 01/18 AND 01/19 of gram positive cocci in bloodstream (staph or strep) and possible sources (contamination vs true finding)--explained strep today but did not have identification of the bacteria yet--ID consult yet to be
determined
Anticipated Discharge: > 48 hours
Subjective/Interval History
-
Date of Service: January 19, 2025
pt doing OK--nursing reports that patient needs to be encouraged to get out of be, walk around, etc
Objective Data
-
Labs:
Laboratory Results
01/19/25
05:52
WBC 9.3
Hgb 11.4 L
Hct 34.5 L
Plt Count 158 D
Sodium 137
Potassium 4.1
Chloride 105
Carbon Dioxide 22
BUN 13
Creatinine 0.6
Glucose 123 H
Calcium 8.6
Total Bilirubin 0.8
AST 49 H
ALT 91 H
Alkaline Phosphatase 106
Vital Signs:
max temp for 24 hours
01/18/25
23:27
Temp 100.3 F
Vital Signs
Temp Pulse Resp BP Pulse Ox
99.4 F 91 16 146/81 96
01/19/25 11:15 01/19/25 11:15 01/19/25 11:15 01/19/25 11:15 01/19/25 11:15
I&O
01/18/25 01/19/25 01/20/25
06:59 06:59 06:59
Intake Total 1100 / 1100 240 / 240
Balance 1100 / 1100 240 / 240
Review of Systems
-
All other systems: Reviewed and negative
Physical Exam
-
General: Well Developed, Well Nourished and No Apparent Distress
HEENT: Normocephalic and Atraumatic
Respiratory: Clear to Auscultation; Negative Wheezes or Rhonchi
Cardiac: Regular Rhythm and S1/S2; Negative Murmur
GI: Soft, Nontender, Nondistended and Normal Bowel Sounds
Musculoskeletal: No Clubbing, No Cyanosis and No Edema
Neuro: Awake and Alert
Psych: Calm
--- NOTE | 2025-01-19 15:01 | CM ---
Patient and son with concerns, awaiting update regarding medical treatment plan for antibiotics. CM will continue to follow for discharge planning needs.
Plan; home with VN and watch for home needs
--- NOTE | 2025-01-19 15:29 | PTCARENOTE ---
Encouraged pt to get OOB multiple times today. This pt is independent in walking. Her family is here and visits for the day. However the pt has not ambulated out of her room since PT worked with her in the AM. PT recommended her to ambulate more. Pt
is currently back in bed.
[2025-01-19] MEDS: STERILE WATER FOR INJECTION 10 ML IV (19:50)
[2025-01-19] MEDS: ROCEPHIN 1000 MG IV (19:50)
[2025-01-20 03:48] VITALS: BP 148/75
[2025-01-20] MEDS: FLAGYL 500 MG 100 IV ×2 (05:06→13:43)
[2025-01-20] MEDS: ZOFRAN 4 MG IV ×2 (05:13→20:32)
[2025-01-20] MEDS: MYLICON 80 MG PO ×2 (05:13→20:37)
[2025-01-20 06:00] VITALS: BMI 41.4
[2025-01-20 07:17] LABS: Hematocrit 34.9 % (37.0-47.0); Hemoglobin 11.4 g/dL (12.0-16.0); Mean Corp Hgb Conc. 32.7 g/dL (33.0-37.0); Mean Corpuscular Hgb 30.2 pg (27.0-31.0); Mean Corpuscular Volume 92.3 fL (81.0-99.0); Mean Platelet Volume 10.9 fL (7.4-10.4); Platelet Count 176 10^3/uL (130-400); Red Blood Cell Count 3.78 10^6/uL (4.20-5.40); Red Cell Dist. Width 13.3 % (11.5-14.5); White Blood Cell Count 10.5 10^3/uL (4.8-10.8)
[2025-01-20 07:25] VITALS: BP 123/53
[2025-01-20 07:34] LABS: ALT (SGPT) 68 U/L (0-35); AST (SGOT) 40 U/L (14-36); Albumin 2.7 g/dl (3.5-5.0); Alkaline Phosphatase 105 U/L (38-126); Blood Urea Nitrogen 13 mg/dl (7-17); Calcium 8.4 mg/dl (8.4-10.2); Carbon Dioxide 27 mmol/L (22-30); Chloride 103 mmol/L (98-107); Estimated Creatinine Clearance 94 ml/min; Glucose 118 mg/dl (70-99); Magnesium 2.1 mg/dl (1.6-2.3); Potassium 3.8 mmol/L (3.5-5.1); Sodium 136 mmol/L (135-145); Total Bilirubin 0.6 mg/dl (0.2-1.3); Total Protein 5.1 g/dl (6.3-8.2); eGFR > 60.00
[2025-01-20] MEDS: HEPARIN 5000 UNITS SC ×3 (08:43→23:00)
[2025-01-20] MEDS: MIRALAX PO (08:43)
[2025-01-20] MEDS: NSS (PRESERVATIVE FREE) 10 ML IV (08:43)
[2025-01-20] MEDS: PROTONIX IV 40 MG IV (08:44)
[2025-01-20] MEDS: FLUSH (NSS) 1 FLUSH IV ×2 (08:44→13:44)
[2025-01-20 09:18] VITALS: BP 134/71; PULSE 85; O2SAT 92
[2025-01-20] MEDS: TYLENOL 650 MG PO (11:14)
[2025-01-20 11:34] VITALS: BP 137/57
--- NOTE | 2025-01-20 14:40 | CON.ID ---
Consultation
-
Date/Time Consultation Requested: 01/20/25 14:12
Date/Time Consultation Performed: 01/20/25 14:41
Requesting Provider: Dr Bob
Performing Provider: Dr Pleitez
Reason for Consultation: Strep bacteremia
Chief Complaint / Past History
Chief Complaint
Poor Appetite and Vomiting
History of Present Illness
Ms Stock is a 74 year old female with history notable for class III obesity who presented here on 01/16 for vomiting, abdominal pressure and anorexia. Also no BM x8-10 days with minimal oral intake. No diarrhea. Patient reports waxing and waning
from 08/2024 for several months ultimately requiring a root canal after which she recalls having a zpac. Patient states she had pain over the maxilla in the region of that tooth for about 1 year. Presented here for persistent symptoms
Since arrival here she was initially febrile to 103.2 orally - fever curve now trending down, BP was initially mildly hypotensive now normalized, wbc 10.5, hgb 11.4, plt 176, there was a L shift on arrival, cr 0.6, a1c 5.5, cr initially 1.7 now 0.6,
t bili 0.6, ast 40, alt 68, alk phos 105, ua 1+ leuk esterase and 6-10 wbc/hpf, CT a/p with iv contrast only - 'Lead pipe appearance of the left colon, likely sequelae of chronic inflammation; Indeterminate 4.8 cm right hepatic lobe mass. Recommend
outpatient workup with dedicated MRI abdomen without and with gadolinium contrast.' two sets of blood cultures at the same time have resulted with s anginosus, a single repeat is no growth to date, patient was initially on ceftriaxone and
metronidazole. Seen by gastroenterology. For MRI abdomen today. Currently on ceftriaxone only. ID is consulted for assistance with management.
Past History
Additional Past Medical History:
Hyperlipidemia
Impaired Fasting Glucose
Osteoarthritis
Class III obesity
Additional Past Surgical History:
Left Breast Surgery
Bilateral Ankle Surgery
Allergy History:
amoxicillin Allergy (Verified 01/16/25 13:31)
Unknown
bacitracin [From Polysporin(bacitracin base)] Allergy (Verified 01/16/25 13:31)
Unknown
polymyxin B [From Polysporin(bacitracin base)] Allergy (Verified 01/16/25 13:31)
Unknown
Medications Reviewed: Yes
Social History
Tobacco: Non-Smoker
Alcohol: Daily
Family History
Family History: Not Pertinent
Review of Systems
Review of Systems
General: Fever and Chills
All systems: All other systems were reviewed and were negative
Vital Signs
Temp Pulse Resp BP Pulse Ox
99.6 F 80 18 137/57 92
01/20/25 11:34 01/20/25 11:34 01/20/25 11:34 01/20/25 11:34 01/20/25 11:34
Physical Exam
Physical Exam
Constitutional: No Acute Distress and Obese
Cardiovascular: Regular Rate and S1/S2; Negative Murmur or Rub
Pulmonary: Clear and Symmetric; Negative Wheezes, Rales or Rhonchi
Gastrointestinal: Soft, Non Tender, Non Distended and Normal Bowel Sounds
Skin: Warm and Dry; Negative Rash or Jaundice
Lab / Diagnostic Study Results
01/20/25 06:18
01/20/25 06:18
Abs Immat Gran (auto) 0.0 10^3/uL (0-0.05) 01/18/25 06:12
Absolute Neuts (auto) 6.7 10^3/uL (1.4-6.5) H 01/18/25 06:12
Absolute Lymphs (auto) 0.7 10^3/uL (1.2-3.4) L 01/18/25 06:12
Absolute Monos (auto) 0.7 10^3/uL (0.1-0.6) H 01/18/25 06:12
Absolute Basos (auto) 0.0 10^3/uL (0-0.2) 01/18/25 06:12
Immature Gran % 0.5 % (0-0.5) 01/18/25 06:12
Neutrophils % 81.6 % (42.2-75.2) H 01/18/25 06:12
Lymphocytes % 8.6 % (20.5-51.1) L 01/18/25 06:12
Monocytes % 8.1 % (1.7-9.3) 01/18/25 06:12
Eosinophils % 0.7 % (0-6) 01/18/25 06:12
Basophils % 0.5 % (0-2) 01/18/25 06:12
Lactic Acid 1.0 mmol/L (0.7-2.0) 01/16/25 18:47
Ur Squamous Epith Cells None seen /LPF (Few) 01/17/25 03:45
Microbiology Results
Micro:
01/18/25 10:13 Blood Culture - Preliminary
Blood/Venous No Growth in 48 hours- Final report to follow
01/16/25 19:05 Blood Culture - Final
Blood/Venous Streptococcus anginosus
Gram Stain - Final
01/16/25 19:05 Blood Culture - Final
Blood/Venous Streptococcus anginosus
Gram Stain - Final
01/17/25 14:50 Salmonella/Shigella Culture - Final
Feces/Stool No Salmonella, Shigella, Aeromonas or Plesiomonas species
isolated.
Campylobacter Culture - Final
No Campylobacter species isolated.
Shiga Toxin Test - Final
No E. coli Shiga Toxin 1 or 2 detected.
Stool Leukocytes - Final
01/17/25 03:45 Urine Culture - Final
Urine NO GROWTH
01/16/25 14:40 Influenza Types A & B (YANNICK) - Final
Nasal Swab Negative for Influenza A & B, NAAT
Negative results must be combined with clinical observations
and patient history.
Nucleic Acid Amplification test (NAAT)performed on the
[facility] [employer] platform.
Assessment / Plan
S anginosus bacteremia
- one of the milleri group - as invasive as S aureus
- agree with MRI abdomen - could be a source of the S anginosus
- pending MRI would likely consider IR evaluation for biopsy, culture, path
- send a second set of blood cultures to complete the set
- TTE
- agree with ceftriaxone at present dose
- switched metronidazole to oral
- due for colonoscopy - follow up with GI outpatient is already scheduled
Care Review
Plan reviewed with: Physician (Dr Bob - MRI, antibiotics)
[2025-01-20 15:07] VITALS: BP 132/53
--- NOTE | 2025-01-20 15:55 | W.PN.HOSP.TC ---
Today's Communication/Plan
-
See plan
Assessment / Plan
Assessment / Plan
Impression:
Streptococcus anginosus bacteremia.
Sepsis present on admission.
Hepatic lesion.
Abnormal LFTs
ADAIR
Morbid obesity with BMI of 41
Plan:
Streptococcus anginosus bacteremia with sepsis present on admission and currently resolved.
Initiated on empiric antibiotics ceftriaxone/metronidazole.
Repeated blood cultures negative to date.
Provides with history of relatively recent 09/03 dental work with possible abscess, unclear if on antibiotics at that time.
Also with liver lesion on CT scan. Abnormal LFTs noted
Viral hepatitis serology negative
Further workup for bacteremia including:
Orthopantogram
MRI of the been
AFP
Consider interventional radiology consultation for liver biopsy
TTE
Continue antibiotics, adjusted to ceftriaxone 2 g every 24 hours changing metronidazole to oral.
Anticipated Discharge: > 48 hours
Subjective/Interval History
-
Date of Service: January 20, 2025
Objective Data
-
Labs:
Laboratory Results
01/20/25
06:18
WBC 10.5
Hgb 11.4 L
Hct 34.9 L
Plt Count 176
Sodium 136
Potassium 3.8
Chloride 103
Carbon Dioxide 27
BUN 13
Creatinine 0.6
Glucose 118 H
Calcium 8.4
Total Bilirubin 0.6
AST 40 H
ALT 68 H
Alkaline Phosphatase 105
Vital Signs:
Vital Signs
Temp Pulse Resp BP Pulse Ox
99 F 90 18 132/53 94
01/20/25 15:07 01/20/25 15:07 01/20/25 15:07 01/20/25 15:07 01/20/25 15:07
I&O
0301/20/25 01/21/25
06:59 06:59 06:59
Intake Total 240 / 240 1640 / 1640
Balance 240 / 240 1640 / 1640
Physical Exam
-
General: Well Developed, Well Nourished and No Apparent Distress
HEENT: Normocephalic and Atraumatic
Respiratory: Clear to Auscultation; Negative Wheezes or Rhonchi
Cardiac: Regular Rhythm and S1/S2; Negative Murmur
GI: Soft, Nontender, Nondistended and Normal Bowel Sounds
Musculoskeletal: No Clubbing, No Cyanosis and No Edema
Neuro: Awake and Alert
Psych: Calm
--- NOTE | 2025-01-20 16:01 | PTCARENOTE ---
P:t AAO x3, MCKEON well, OOB in room/aviles, yi well; OOB to chair at times. VSS. On room air- pulse ox 94%, no SOB noted. Abd obese, soft, yi PO, appetite fair. Pt aware of NPO past midnight 01/21 for MRI abd. Voids in BR without difficulty.
Resting in bed at present. Will continue to monitor.
[2025-01-20] MEDS: ROCEPHIN 2000 MG IV (20:22)
[2025-01-20] MEDS: FLAGYL 500 MG PO (20:22)
[2025-01-20] MEDS: STERILE WATER FOR INJECTION 20 ML IV (20:23)
[2025-01-20 23:57] VITALS: BP 135/61
[2025-01-21] MEDS: TYLENOL 650 MG PO ×2 (01:06→17:11)
[2025-01-21 06:00] VITALS: BMI 41.2
[2025-01-21 07:05] VITALS: BP 135/71
[2025-01-21] MEDS: MIRALAX PO (08:45)
[2025-01-21] MEDS: FLAGYL 500 MG PO ×2 (08:45→20:14)
[2025-01-21] MEDS: HEPARIN 5000 UNITS SC ×3 (08:45→23:02)
--- NOTE | 2025-01-21 10:26 | CM ---
Addendum entered by Mercedes Sharma 01/21/25 10:59:
Patient spoke with [facility], will not be homebound.
Patient is agreeable to outpatient therapy, will need script.
Plan: home no needs anticiapted.
Original Note:
Patient seen bedside.
Patient seen by PT and recommendation is for home with HC vs outpatient, patint would prefer home care.
Options reviewed, chose [facility].
Referral to liaison.
Plan: home with [facility] when stable.
--- NOTE | 2025-01-21 10:36 | VNURNOTE ---
Chart reviewed. [facility] liaison met with patient. Explained frequency, homebound criteria. Patient stated she plans on resuming driving, going out, and picking up her grandson upon DC. Will not meet homebound criteria. Patient seemed open to outpt.
SAVANNAH Fraga notified. No [facility]N referral placed.
--- NOTE | 2025-01-21 14:56 | W.PN.HOSP.TC ---
Today's Communication/Plan
-
Liver biopsy/drain.
Continue IV antibiotics
Assessment / Plan
Assessment / Plan
Impression:
Streptococcus anginosus bacteremia.
Sepsis present on admission.
Hepatic lesion.
Abnormal LFTs
ADAIR
Morbid obesity with BMI of 41
Plan:
Streptococcus anginosus bacteremia with sepsis present on admission and currently resolved.
Initiated on empiric antibiotics ceftriaxone/metronidazole.
Repeated blood cultures negative to date.
Provides with history of relatively recent 09/03 dental work with possible abscess, unclear if on antibiotics at that time.
Also with liver lesion on CT scan. Abnormal LFTs noted
Viral hepatitis serology negative
Orthopantogram with no evidence of dental infection
TTE with no evidence for IE
MRI of the abdomen findings consistent with possible hepatic collection versus mass.
Interventional radiology consultation for drainage and possible biopsy
AFP pending, although low specificity
Continue antibiotics, adjusted to ceftriaxone 2 g every 24 hours changing metronidazole to oral.
Anticipated Discharge: > 48 hours
Subjective/Interval History
-
Date of Service: January 21, 2025
Objective Data
-
Vital Signs:
Vital Signs
Temp Pulse Resp BP Pulse Ox
98.4 F 79 16 135/71 94
01/21/25 07:05 01/21/25 07:05 01/21/25 07:05 01/21/25 07:05 01/21/25 08:55
I&O
01/20/25 01/21/25 01/22/25
06:59 06:59 06:59
Intake Total 1640 / 1640 1000 / 1000
Balance 1640 / 1640 1000 / 1000
Physical Exam
-
General: Well Developed, Well Nourished and No Apparent Distress
HEENT: Normocephalic and Atraumatic
Respiratory: Clear to Auscultation; Negative Wheezes or Rhonchi
Cardiac: Regular Rhythm and S1/S2; Negative Murmur
GI: Soft, Nontender, Nondistended and Normal Bowel Sounds
Musculoskeletal: No Clubbing, No Cyanosis and No Edema
Neuro: Awake and Alert
Psych: Calm
[2025-01-21 15:10] VITALS: BP 156/70
--- NOTE | 2025-01-21 16:00 | W.PN.UPDATE ---
Update Note
Progress Note Update
MRI reviewed
OR consulted
continue current antibiotics
[2025-01-21 18:13] LABS: AFP Male/Tumor Marker 5.29 ng/ml
[2025-01-21] MEDS: ROCEPHIN 2000 MG IV (20:15)
[2025-01-21] MEDS: STERILE WATER FOR INJECTION 20 ML IV (20:15)
[2025-01-21 23:24] VITALS: BP 136/69
[2025-01-22] VITALS (17 sets, daily range): BP systolic 78–158; BP diastolic 62–82; PULSE 85; O2SAT 93; BMI 40.9
[2025-01-22] MEDS: MYLICON 80 MG PO (02:43)
[2025-01-22] MEDS: HEPARIN 5000 UNITS SC ×3 (10:20→23:01)
[2025-01-22] MEDS: FLAGYL 500 MG PO ×2 (10:20→20:22)
[2025-01-22] MEDS: MIRALAX PO (10:20)
[2025-01-22 12:56] LABS: INR 1.53; PT 18.6 Sec (11.4-14.6)
--- NOTE | 2025-01-22 14:28 | W.PN.ID1 ---
Date of Service
Date of Service: January 22, 2025
Today's Communication
- will set up for 4 weeks of home IV antibiotics - anticipate discharge saturday
Assessment / Plan
S anginosus bacteremia
Hepatic abscess
- one of the milleri group - as invasive as S aureus
- s/p IR guided drainage
- send a second set of blood cultures to complete the set
- TTE
- s/p drain placement
- c/w ceftriaxone IV and metronidazole to oral
- due for colonoscopy - follow up with GI outpatient is already scheduled
- will set up for 4 weeks of home IV antibiotics - anticipate discharge saturday
Chief Complaint
-: Bacteremia and Other (probable hepatic abscess)
Subjective / Review of Systems
afebrile
bp stable
s/p drain placement into hepatic abscess
Vital Signs / Physical Exam
Vital Signs
Vital Signs
Temp Pulse Resp BP Pulse Ox
98.7 F 84 20 149/76 94
01/22/25 13:30 01/22/25 13:30 01/22/25 13:30 01/22/25 13:30 01/22/25 13:30
Physical Exam
Constitutional: No Acute Distress
Cardiovascular: Regular Rate and S1/S2; Negative Murmur or Rub
Pulmonary: Clear and Symmetric; Negative Wheezes or Rales
Gastrointestinal: Soft, Non Tender, Non Distended and Normal Bowel Sounds
Skin: Warm and Dry; Negative Rash or Jaundice
Lines: Other (purulent drainage in the aspirate)
Objective Data
Lab Data
Lab Results
01/20/25 06:18
01/20/25 06:18
PT 18.6 Sec (11.4-14.6) H 01/22/25 12:33
INR 1.53 01/22/25 12:33
Estimated Creat Clear 94 ml/min 01/20/25 06:18
Lactic Acid 1.0 mmol/L (0.7-2.0) 01/16/25 18:47
Total Bilirubin 0.6 mg/dl (0.2-1.3) 01/20/25 06:18
AST 40 U/L (14-36) H 01/20/25 06:18
ALT 68 U/L (0-35) H 01/20/25 06:18
Alkaline Phosphatase 105 U/L (38-126) 01/20/25 06:18
Most recent labs reviewed.
Micro Results:
01/18/25 10:13 Blood Culture - Preliminary
Blood/Venous No Growth in 4 days- Final report to follow
01/20/25 18:04 Blood Culture - Preliminary
Blood/Venous No Growth in 24 hours- Final report to follow
01/16/25 19:05 Blood Culture - Final
Blood/Venous Streptococcus anginosus
Gram Stain - Final
01/16/25 19:05 Blood Culture - Final
Blood/Venous Streptococcus anginosus
Gram Stain - Final
01/17/25 14:50 Salmonella/Shigella Culture - Final
Feces/Stool No Salmonella, Shigella, Aeromonas or Plesiomonas species
isolated.
Campylobacter Culture - Final
No Campylobacter species isolated.
Shiga Toxin Test - Final
No E. coli Shiga Toxin 1 or 2 detected.
Stool Leukocytes - Final
01/17/25 03:45 Urine Culture - Final
Urine NO GROWTH
01/16/25 14:40 Influenza Types A & B (YANNICK) - Final
Nasal Swab Negative for Influenza A & B, NAAT
Negative results must be combined with clinical observations
and patient history.
Nucleic Acid Amplification test (NAAT)performed on the
[employer] platform.
Other: Image Reviewed and Report Reviewed (panellipse - nonrevealing)
--- NOTE | 2025-01-22 14:32 | W.PN.UPDATE ---
Update Note
Progress Note Update
Procedure: US/fluoro guided abscess drain
- US guided placement of 18g needle into complex lesion in the R hepatic lobe. Needle aspirated yielding purulent fluid - proceeded with drain placement. 8.5F drain placed yielding a total of 35 mL pus
- Drain orders placed. Pt tolerated well
--- NOTE | 2025-01-22 15:24 | PN.IRAD.UPD ---
Update Note - IRAD
- -
Teaching for drainage catheter care done bedside. Discharge drain care paperwork given to patient, flush orders entered for discharge.
[2025-01-22] MEDS: TYLENOL 650 MG PO ×2 (15:49→20:22)
--- NOTE | 2025-01-22 16:02 | W.PN.HOSP.TC ---
Today's Communication/Plan
-
Monitor drain output.
IV antibiotics
Assessment / Plan
Assessment / Plan
Impression:
Streptococcus anginosus bacteremia.
Sepsis present on admission.
Hepatic abscess.
� Status post percutaneous drain by IR on 01/22
ADAIR
Morbid obesity with BMI of 41
Plan:
Streptococcus anginosus bacteremia with sepsis present on admission and currently resolved.
Initiated on empiric antibiotics ceftriaxone/metronidazole.
MRI of the abdomen findings consistent with possible hepatic collection versus mass.
Hepatic abscess drained by interventional radiology on 01/22
Repeated blood cultures negative to date.
Orthopantogram with no evidence of dental infection
TTE with no evidence for IE
Plan is for 4 weeks of IV antibiotics. Home infusion to be set up.
Monitor TRINIDAD output
Anticipated Discharge: 24 - 48 hours
Subjective/Interval History
-
Date of Service: January 22, 2025
Objective Data
-
Labs:
Laboratory Results
01/22/25
12:33
PT 18.6 H
INR 1.53
Vital Signs:
Vital Signs
Temp Pulse Resp BP Pulse Ox
98.6 F 83 18 158/72 93
01/22/25 15:45 01/22/25 15:45 01/22/25 15:45 01/22/25 15:45 01/22/25 15:45
I&O
01/21/25 01/22/25 01/23/25
06:59 06:59 06:59
Intake Total 1000 / 1000 240 / 240
Balance 1000 / 1000 240 / 240
Physical Exam
-
General: Well Developed, Well Nourished and No Apparent Distress
HEENT: Normocephalic and Atraumatic
Respiratory: Clear to Auscultation; Negative Wheezes or Rhonchi
Cardiac: Regular Rhythm and S1/S2; Negative Murmur
GI: Soft, Nontender, Nondistended, Normal Bowel Sounds and Other (Right upper quadrant TRINIDAD drain)
Musculoskeletal: No Clubbing, No Cyanosis and No Edema
Neuro: Awake and Alert
Psych: Calm
--- NOTE | 2025-01-22 16:03 | PTCARENOTE ---
Received patient back from IR with TRINIDAD Drain to RLQ. CDI,. Purulent drainage noted. Call hayes within reach.
[2025-01-22] MEDS: STERILE WATER FOR INJECTION 20 ML IV (20:22)
[2025-01-22] MEDS: ROCEPHIN 2000 MG IV (20:22)
[2025-01-22] MEDS: ZOFRAN 4 MG IV (20:25)
[2025-01-23] MEDS: TYLENOL 650 MG PO ×5 (00:35→20:44)
[2025-01-23 03:00] VITALS: BP 129/69
[2025-01-23 06:00] VITALS: BMI 41.0
[2025-01-23 07:57] VITALS: BP 132/70
--- NOTE | 2025-01-23 08:59 | W.PN.HOSP.TC ---
Today's Communication/Plan
-
Antibiotics
Assessment / Plan
Assessment / Plan
Physical exam:
General: Well Developed, Well Nourished and No Apparent Distress
HEENT: Normocephalic, Atraumatic and Moist Mucous Membranes
Respiratory: Clear to Auscultation; Negative Wheezes, Rales or Rhonchi
Cardiac: Regular Rhythm and S1/S2
GI: Soft, tender and Nondistended
Musculoskeletal: No Clubbing, No Cyanosis and No Edema
Neuro: Awake, Alert and Oriented
Psych: Calm
A/P:
Impression:
Streptococcus anginosus bacteremia.
Sepsis present on admission.
Hepatic abscess.
� Status post percutaneous drain by IR on 01/22
ADAIR
Morbid obesity with BMI of 41
Plan:
Streptococcus anginosus bacteremia with sepsis present on admission and currently resolved.
Initiated on empiric antibiotics ceftriaxone/metronidazole.
MRI of the abdomen findings consistent with possible hepatic collection versus mass.
Hepatic abscess drained by interventional radiology on 01/22
Repeated blood cultures negative to date.
Orthopantogram with no evidence of dental infection
TTE with no evidence for IE
Plan is for 4 weeks of IV antibiotics. Continue oral antibiotic as well. Home infusion to be set up.
Monitor TRINIDAD output
Heparin SQ for DVT prophylaxis
Will check CBC, CMP in a.m.
Total time spent on today's encounter was 52 minutes which included time spent in counseling the patient/family regarding diagnosis and treatment plan as listed above, goals of care, and symptom management. Case was discussed with nursing staff,
specialists, and care coordinators/case management. All labs and imaging personally reviewed by me. Remainder the time spent in detailed review of previous records, lab data, imaging, and other medical provider documentation.
Anticipated Discharge: > 48 hours
Subjective/Interval History
-
Date of Service: January 23, 2025
Patient with mild discomfort on right abdomen where she had drainage. No nausea or vomiting. Afebrile
Objective Data
-
Vital Signs:
Vital Signs
Temp Pulse Resp BP Pulse Ox
98.3 F 80 18 132/70 92
01/23/25 07:57 01/23/25 07:57 01/23/25 07:57 01/23/25 07:57 01/23/25 07:57
I&O
01/22/25 01/23/25 01/24/25
06:59 06:59 06:59
Intake Total 240 / 240 720 / 720
Output Total 50 / 50
Balance 240 / 240 670 / 670
[2025-01-23] MEDS: HEPARIN 5000 UNITS SC ×3 (09:30→23:52)
[2025-01-23] MEDS: MIRALAX 17 GRAMS PO (09:30)
[2025-01-23] MEDS: FLAGYL 500 MG PO ×2 (09:30→20:41)
[2025-01-23 15:17] VITALS: BP 140/68
[2025-01-23] MEDS: ROCEPHIN 2000 MG IV (20:24)
[2025-01-23] MEDS: STERILE WATER FOR INJECTION 20 ML IV (20:24)
[2025-01-23 23:44] VITALS: BP 138/66
[2025-01-24] MEDS: TYLENOL 650 MG PO ×3 (02:48→21:01)
[2025-01-24 06:00] VITALS: BMI 40.7
[2025-01-24 06:23] LABS: % Basophils 0.5 % (0-2); % Eosinophils 0.6 % (0-6); % Lymphocytes 12.1 % (20.5-51.1); % Monocytes 6.1 % (1.7-9.3); % Neutrophils 76.7 % (42.2-75.2); Absolute Basophils 0.1 10^3/uL (0-0.2); Absolute Eosinophils 0.1 10^3/uL (0-0.7); Absolute Immature Granulocytes 0.4 10^3/uL (0-0.05); Absolute Lymphocytes 1.3 10^3/uL (1.2-3.4); Absolute Monocytes 0.7 10^3/uL (0.1-0.6); Absolute Neutrophils 8.5 10^3/uL (1.4-6.5); Hematocrit 33.5 % (37.0-47.0); Hemoglobin 10.9 g/dL (12.0-16.0); Mean Corp Hgb Conc. 32.5 g/dL (33.0-37.0); Mean Corpuscular Hgb 30.2 pg (27.0-31.0); Mean Corpuscular Volume 92.8 fL (81.0-99.0); Mean Platelet Volume 9.4 fL (7.4-10.4); Nucleated Red Blood Cells % 0 %; Platelet Count 414 10^3/uL (130-400); Red Blood Cell Count 3.61 10^6/uL (4.20-5.40); Red Cell Dist. Width 14.1 % (11.5-14.5); White Blood Cell Count 11.1 10^3/uL (4.8-10.8)
[2025-01-24 06:43] LABS: ALT (SGPT) 33 U/L (0-35); AST (SGOT) 29 U/L (14-36); Albumin 2.5 g/dl (3.5-5.0); Alkaline Phosphatase 114 U/L (38-126); Blood Urea Nitrogen 14 mg/dl (7-17); Calcium 8.1 mg/dl (8.4-10.2); Carbon Dioxide 33 mmol/L (22-30); Chloride 98 mmol/L (98-107); Estimated Creatinine Clearance 93 ml/min; Glucose 111 mg/dl (70-99); Potassium 3.7 mmol/L (3.5-5.1); Sodium 137 mmol/L (135-145); Total Bilirubin 0.7 mg/dl (0.2-1.3); Total Protein 5.1 g/dl (6.3-8.2); eGFR > 60.00
[2025-01-24 07:55] VITALS: BP 153/70
--- NOTE | 2025-01-24 09:04 | W.PN.HOSP.TC ---
Today's Communication/Plan
-
Antibiotics.
Assessment / Plan
Assessment / Plan
Physical exam:
General: Well Developed, Well Nourished and No Apparent Distress
HEENT: Normocephalic, Atraumatic and Moist Mucous Membranes
Respiratory: Clear to Auscultation; Negative Wheezes, Rales or Rhonchi
Cardiac: Regular Rhythm and S1/S2
GI: Soft, mild ruq tender and Nondistended
Musculoskeletal: No Clubbing, No Cyanosis and No Edema
Neuro: Awake, Alert and Oriented, no neurological deficits
Psych: Calm
A/P:
Impression:
Streptococcus anginosus bacteremia.
Sepsis present on admission.
Hepatic abscess.
� Status post percutaneous drain by IR on 01/22
ADAIR
Morbid obesity with BMI of 41
Plan:
Streptococcus anginosus bacteremia with sepsis present on admission and currently resolved.
Initiated on empiric antibiotics ceftriaxone/metronidazole.
MRI of the abdomen findings consistent with possible hepatic collection versus mass.
Hepatic abscess drained by interventional radiology on 01/22
Repeated blood cultures negative to date.
Orthopantogram with no evidence of dental infection
TTE with no evidence for IE
Plan is for 4 weeks of IV antibiotics. Continue oral antibiotic as well. Home infusion to be set up.
Monitor TRINIDAD output
LFTs back to normal. White blood cell count mildly elevated. Renal function electrolytes within normal.
Heparin SQ for DVT prophylaxis
A director of maternity services had a needlestick so source labs ordered
Check C. difficile stool
Anticipated Discharge: Within 24 hours
Subjective/Interval History
-
Date of Service: January 24, 2025
Complains of some headache and nausea. Complains of metallic taste in her mouth. Complains of diarrhea. Complains of discomfort right upper quadrant. Afebrile
Objective Data
-
Labs:
Laboratory Results
01/24/25
06:00
WBC 11.1 H
Hgb 10.9 L
Hct 33.5 L
Plt Count 414 H D
Sodium 137
Potassium 3.7
Chloride 98
Carbon Dioxide 33 H
BUN 14
Creatinine 0.5 L
Glucose 111 H
Calcium 8.1 L
Total Bilirubin 0.7
AST 29
ALT 33
Alkaline Phosphatase 114
Vital Signs:
Vital Signs
Temp Pulse Resp BP Pulse Ox
98.2 F 76 18 153/70 93
01/24/25 07:55 01/24/25 07:55 01/24/25 07:55 01/24/25 07:55 01/24/25 07:55
I&O
01/23/25 01/24/25 01/25/25
06:59 06:59 06:59
Intake Total 720 / 720 1440 / 1440
Output Total 50 / 50 75 / 75
Balance 670 / 670 1365 / 1365
[2025-01-24] MEDS: MIRALAX PO (09:16)
[2025-01-24] MEDS: HEPARIN 5000 UNITS SC ×2 (09:17→17:09)
[2025-01-24] MEDS: FLAGYL 500 MG PO ×2 (09:17→20:49)
[2025-01-24] MEDS: ZOFRAN 4 MG IV (12:47)
--- NOTE | 2025-01-24 13:35 | PTCARENOTE ---
Patient with diarrhea. Yellow in color. MD aware. Cdiff specimen sent and negative.
[2025-01-24 14:02] LABS: Hepatitis B Surface Antigen Negative (Negative)
[2025-01-24 14:12] LABS: HIV Combo Negative (Negative)
[2025-01-24 14:20] LABS: Hepatitis B Surface Antibody Negative; Hepatitis C Antibody Negative (Negative)
[2025-01-24 15:55] VITALS: BP 147/78
[2025-01-24] MEDS: STERILE WATER FOR INJECTION IV (20:48)
[2025-01-24] MEDS: ROCEPHIN IV (20:48)
[2025-01-24] MEDS: STERILE WATER FOR INJECTION 20 ML IV (21:55)
[2025-01-24] MEDS: ROCEPHIN 2000 MG IV (21:56)
[2025-01-24 23:44] VITALS: BP 143/71
[2025-01-25] MEDS: HEPARIN 5000 UNITS SC ×4 (00:19→23:29)
[2025-01-25 06:00] VITALS: BMI 40.5
[2025-01-25 07:25] VITALS: BP 153/76
[2025-01-25] MEDS: FLAGYL 500 MG PO ×2 (09:13→19:28)
[2025-01-25] MEDS: TYLENOL 650 MG PO ×2 (09:13→22:16)
[2025-01-25] MEDS: MYLICON 80 MG PO ×2 (09:13→22:16)
[2025-01-25] MEDS: IMODIUM 2 MG PO ×2 (09:13→22:16)
[2025-01-25] MEDS: MIRALAX PO (09:14)
[2025-01-25 11:05] VITALS: BP 143/72; PULSE 94
--- NOTE | 2025-01-25 11:13 | W.PN.ID1 ---
Date of Service
Date of Service: January 25, 2025
Today's Communication
c/w ceftriaxone IV and metronidazole to oral
- due for colonoscopy - follow up with GI outpatient is already scheduled
- PICC
- will set up for 4 weeks of home IV antibiotics - script given to rn case manager Hector today
- pt to keep log of drain output, when persistently below 20 ccs x3 days to call IR to schedule drain assessment
Assessment / Plan
S anginosus bacteremia
Hepatic abscess
- one of the milleri group - as invasive as S aureus
- s/p IR guided drainage
- repeat blood cultures no growth to date
- TTE - no vegetations
- drain output 75 ccs yesterday and 23 ccs thus far today
- c/w ceftriaxone IV and metronidazole to oral
- due for colonoscopy - follow up with GI outpatient is already scheduled
- PICC
- will set up for 4 weeks of home IV antibiotics - script given to rn case manager Hector today
- pt to keep log of drain output, when persistently below 20 ccs x3 days to call IR to schedule drain assessment
- follow up with me shortly before completion of IV therapy
Chief Complaint
-: Bacteremia and Other (probable hepatic abscess)
Subjective / Review of Systems
afebrile
bp stable
drain output 75 ccs yesterday and 23 ccs thus far today
Vital Signs / Physical Exam
Vital Signs
Vital Signs
Temp Pulse Resp BP Pulse Ox
98.7 F 87 18 153/76 94
01/25/25 07:25 01/25/25 07:25 01/25/25 07:25 01/25/25 07:25 01/25/25 07:25
Physical Exam
Constitutional: No Acute Distress
Cardiovascular: Regular Rate and S1/S2; Negative Murmur or Rub
Pulmonary: Clear and Symmetric; Negative Wheezes or Rales
Gastrointestinal: Soft, Non Tender, Non Distended and Normal Bowel Sounds
Skin: Warm and Dry; Negative Rash or Jaundice
Lines: Other (drain with serous fluid)
Objective Data
Lab Data
Lab Results
01/24/25 06:00
01/24/25 06:00
PT 18.6 Sec (11.4-14.6) H 01/22/25 12:33
INR 1.53 01/22/25 12:33
Estimated Creat Clear 93 ml/min 01/24/25 06:00
Lactic Acid 1.0 mmol/L (0.7-2.0) 01/16/25 18:47
Total Bilirubin 0.7 mg/dl (0.2-1.3) 01/24/25 06:00
AST 29 U/L (14-36) 01/24/25 06:00
ALT 33 U/L (0-35) 01/24/25 06:00
Alkaline Phosphatase 114 U/L (38-126) 01/24/25 06:00
Most recent labs reviewed.
Micro Results:
01/21/25 14:20 Anaerobic Culture - Preliminary
Abdomen Culture pending. Anaerobic cultures are examined after 3
days incubation. Additional information to follow.
01/21/25 14:20 Wound Culture - Preliminary
Liver No growth
Gram Stain - Preliminary
01/20/25 18:04 Blood Culture - Preliminary
Blood/Venous No Growth in 4 days- Final report to follow
01/24/25 12:54 C. difficile GDH Antigen & Toxins - Final
Feces/Stool Negative for toxigenic C.difficile
01/18/25 10:13 Blood Culture - Final
Blood/Venous No Growth - Final Report
01/16/25 19:05 Blood Culture - Final
Blood/Venous Streptococcus anginosus
Gram Stain - Final
01/16/25 19:05 Blood Culture - Final
Blood/Venous Streptococcus anginosus
Gram Stain - Final
01/17/25 14:50 Salmonella/Shigella Culture - Final
Feces/Stool No Salmonella, Shigella, Aeromonas or Plesiomonas species
isolated.
Campylobacter Culture - Final
No Campylobacter species isolated.
Shiga Toxin Test - Final
No E. coli Shiga Toxin 1 or 2 detected.
Stool Leukocytes - Final
01/17/25 03:45 Urine Culture - Final
Urine NO GROWTH
01/16/25 14:40 Influenza Types A & B (YANNICK) - Final
Nasal Swab Negative for Influenza A & B, NAAT
Negative results must be combined with clinical observations
and patient history.
Nucleic Acid Amplification test (NAAT)performed on the
[employer] platform.
--- NOTE | 2025-01-25 11:40 | PTOTSP ---
Pt is able to get up and ambulate in hallway without need for an assistive device and is able to climb steps with railing. Anticipate pt returning home. PT will sign off.
--- NOTE | 2025-01-25 14:50 | CM ---
Received Iv antibiotics script this am from ID.
Spoke with pt and son Claude pt is apprehensive about home IV infusion.
Options of home infusion VS out pt infusion given.
Follow up with son .Pt has agreed with home infusion.
PICC line placed 2:30 pm CXR done 3:00pm .
Contacted [facility] . Shonda to see pt and son for instruction.
All insurance script H&P etc faxed to [facility] .
Contacted Debbie ROME to see pt for TRINIDAD drain instruction Referral placed.
[facility] has not established ocasio of medicines /supplies yet.
PLAN Home with [facility] infusion and Cody ROME fax [phone]
.
[2025-01-25 15:36] VITALS: BP 150/74
--- NOTE | 2025-01-25 15:51 | W.PN.HOSP.TC ---
Today's Communication/Plan
-
Discharge planning
Home with IV antibiotic infusion.
TRINIDAD drain follow-up by interventional radiology.
Assessment / Plan
Assessment / Plan
A/P:
Impression:
Streptococcus anginosus bacteremia.
Sepsis present on admission.
Hepatic abscess.
� Status post percutaneous drain by IR on 01/22
ADAIR
Morbid obesity with BMI of 41
Plan:
Streptococcus anginosus bacteremia with sepsis present on admission and currently resolved.
Initiated on empiric antibiotics ceftriaxone/metronidazole.
MRI of the abdomen findings consistent with possible hepatic collection versus mass.
Hepatic abscess drained by interventional radiology on 01/22
Repeated blood cultures negative to date.
Orthopantogram with no evidence of dental infection
TTE with no evidence for IE
Plan is for 4 weeks of IV antibiotics. Continue oral antibiotic as well. Home infusion to be set up.
Monitor TRINIDAD output.
LFTs back to normal. White blood cell count mildly elevated. Renal function electrolytes within normal.
Heparin SQ for DVT prophylaxis
Likely secondary to antibiotics
*Probiotic
Stool negative for C. difficile
Anticipated Discharge: Within 24 hours
Subjective/Interval History
-
Date of Service: January 25, 2025
Objective Data
-
Vital Signs:
Vital Signs
Temp Pulse Resp BP Pulse Ox
98.4 F 82 18 150/74 92
01/25/25 15:36 01/25/25 15:36 01/25/25 15:36 01/25/25 15:36 01/25/25 15:36
I&O
01/24/25 01/25/25 01/26/25
06:59 06:59 06:59
Intake Total 1440 / 1440 960 / 960 10 / 10
Output Total 75 / 75 3 / 3 /
Balance 1365 / 1365 957 / 957 -10 / -10
Physical Exam
-
General: Well Developed, Well Nourished and No Apparent Distress
HEENT: Normocephalic and Atraumatic
Respiratory: Clear to Auscultation; Negative Wheezes or Rhonchi
Cardiac: Regular Rhythm and S1/S2; Negative Murmur
GI: Soft, Nontender, Nondistended, Normal Bowel Sounds and Other (Right upper quadrant TRINIDAD drain)
Musculoskeletal: No Clubbing, No Cyanosis and No Edema
Neuro: Awake and Alert
Psych: Calm
[2025-01-25] MEDS: ROCEPHIN 2000 MG IV (17:56)
[2025-01-25] MEDS: STERILE WATER FOR INJECTION 20 ML IV (17:57)
[2025-01-25 23:49] VITALS: BP 166/81
[2025-01-26 06:00] VITALS: BMI 39.4
[2025-01-26 07:47] VITALS: BP 145/68
[2025-01-26] MEDS: HEPARIN 5000 UNITS SC (08:57)
[2025-01-26] MEDS: MIRALAX PO (08:59)
[2025-01-26] MEDS: TYLENOL 650 MG PO (08:59)
[2025-01-26] MEDS: FLAGYL 500 MG PO (08:59)
--- NOTE | 2025-01-26 12:23 | CM ---
Patient seen bedside with daughter, discussed per [facility], drug copay $16 a week, nursing/supplies covered. Shonda from [facility] will be at Hospital around 1:00 p.m. to do teaching, will update Cody ROME on discharge regarding drain care. IMM
reviewed, signed, placed in chart. Daughter will transport home. CM will continue to follow for all discharge planning needs.
Plan; home with daughter, [facility], Cody ROME, daughter to transport
Cody fax [phone]
[facility]
--- NOTE | 2025-01-26 13:23 | W.DS.TRANS ---
DC Summary - Electrical Research Engineer
-
Discharge Instructions:
Discharge Diagnosis/Procedures Streptococcus anginosus bacteremia.
Sepsis present on admission.
Hepatic abscess.
� Status post percutaneous drain by IR on 01/22
ADAIR
Diet Regular
Instructions:
Stand-Alone Forms:
Changes to Home Medications: Yes
Discharge Medications:
DC Medications w/original date entered in [employer]
etodolac 300 mg capsule 300 mg PO BID Pain 01/16/25
acetaminophen 500 mg tablet 500 mg PO DAILYPRN PRN mild pain 01/17/25
bisacodyl 5 mg tablet,delayed release (Dulcolax (bisacodyl)) 5 mg PO BID Constipation 01/17/25
cholecalciferol (vitamin D3) 50 mcg (2,000 unit) tablet 50 mcg PO QPM Supplement 01/17/25
loratadine 10 mg tablet (Claritin) 10 mg PO QPM Allergies 01/17/25
turmeric 400 mg capsule 800 mg PO QPM Supplement 01/17/25
sodium chloride 0.9 % (flush) (Monoject Prefill Advanced 0.9 % Sodium Chloride injection syringe) 10 ml intra-catheter DAILY Flush drain with 10mL daily #25 syringes 01/22/25
ceftriaxone 2 gram solution for injection 2,000 mg IV Q24H #20 ea 01/26/25
metronidazole 500 mg tablet 500 mg PO BID #40 tabs 01/26/25
Home Medication Changes
Antibiotics
Pending Results: No
--- NOTE | 2025-01-26 15:57 | W.PN.ID1 ---
Date of Service
Date of Service: January 26, 2025
Today's Communication
- c/w ceftriaxone IV and metronidazole to oral
- due for colonoscopy - follow up with GI outpatient is already scheduled
- PICC
- will set up for 4 weeks of home IV antibiotics - script given to cyanide case hardener Hector 01/25
- pt to keep log of drain output, when persistently below 20 ccs x3 days to call IR to schedule drain assessment
- follow up with me shortly before completion of IV therapy
Assessment / Plan
S anginosus bacteremia
Hepatic abscess
- one of the milleri group - as invasive as S aureus
- s/p IR guided drainage
- repeat blood cultures no growth to date
- TTE - no vegetations
- drain output may be dropping off
- c/w ceftriaxone IV and metronidazole to oral
- due for colonoscopy - follow up with GI outpatient is already scheduled
- PICC
- will set up for 4 weeks of home IV antibiotics - script given to cyanide case hardener Hector 01/25
- pt to keep log of drain output, when persistently below 20 ccs x3 days to call IR to schedule drain assessment
- follow up with me shortly before completion of IV therapy
Chief Complaint
-: Bacteremia and Other (probable hepatic abscess)
Subjective / Review of Systems
afebrile
bp stable
no events overnight
Vital Signs / Physical Exam
Vital Signs
Vital Signs
Temp Pulse Resp BP Pulse Ox
98.1 F 71 18 145/68 93
01/26/25 07:47 01/26/25 07:47 01/26/25 07:47 01/26/25 07:47 01/26/25 07:47
Physical Exam
Constitutional: No Acute Distress
Cardiovascular: Regular Rate and S1/S2; Negative Murmur or Rub
Pulmonary: Clear and Symmetric; Negative Wheezes or Rales
Gastrointestinal: Soft, Non Tender, Non Distended and Normal Bowel Sounds
Skin: Warm and Dry; Negative Rash or Jaundice
Lines: Other (drain with serous fluid)
Objective Data
Lab Data
Lab Results
01/24/25 06:00
01/24/25 06:00
PT 18.6 Sec (11.4-14.6) H 01/22/25 12:33
INR 1.53 01/22/25 12:33
Estimated Creat Clear 93 ml/min 01/24/25 06:00
Lactic Acid 1.0 mmol/L (0.7-2.0) 01/16/25 18:47
Total Bilirubin 0.7 mg/dl (0.2-1.3) 01/24/25 06:00
AST 29 U/L (14-36) 01/24/25 06:00
ALT 33 U/L (0-35) 01/24/25 06:00
Alkaline Phosphatase 114 U/L (38-126) 01/24/25 06:00
Most recent labs reviewed.
Micro Results:
01/21/25 14:20 Anaerobic Culture - Preliminary
Abdomen NO ANAEROBES ISOLATED
01/20/25 18:04 Blood Culture - Final
Blood/Venous No Growth - Final Report
01/21/25 14:20 Wound Culture - Preliminary
Liver No growth
Gram Stain - Preliminary
01/24/25 12:54 C. difficile GDH Antigen & Toxins - Final
Feces/Stool Negative for toxigenic C.difficile
01/18/25 10:13 Blood Culture - Final
Blood/Venous No Growth - Final Report
01/16/25 19:05 Blood Culture - Final
Blood/Venous Streptococcus anginosus
Gram Stain - Final
01/16/25 19:05 Blood Culture - Final
Blood/Venous Streptococcus anginosus
Gram Stain - Final
01/17/25 14:50 Salmonella/Shigella Culture - Final
Feces/Stool No Salmonella, Shigella, Aeromonas or Plesiomonas species
isolated.
Campylobacter Culture - Final
No Campylobacter species isolated.
Shiga Toxin Test - Final
No E. coli Shiga Toxin 1 or 2 detected.
Stool Leukocytes - Final
01/17/25 03:45 Urine Culture - Final
Urine NO GROWTH
01/16/25 14:40 Influenza Types A & B (YANNICK) - Final
Nasal Swab Negative for Influenza A & B, NAAT
Negative results must be combined with clinical observations
and patient history.
Nucleic Acid Amplification test (NAAT)performed on the
[employer] platform.
[2025-01-26 16:19] VITALS: BP 118/65
[2025-01-26] MEDS: ROCEPHIN 2000 MG IV (16:34)
[2025-01-26] MEDS: STERILE WATER FOR INJECTION 20 ML IV (16:34)
== END 2025-01-26 17:31 | disposition home health service (06) | DRG 871 ==
LOC: 4 EAST ACU 18:24
PROVIDERS: Hospitalist; Internal Medicine; Nurse Practitioner; Physician Assistant Medical; Radiology Diagnostic Radiology; ADMITTING PHYSICIAN Hospitalist; ATTENDING PHYSICIAN Internal Medicine; CONSULT PHYSICIAN Internal Medicine; CONSULT PHYSICIAN Student in an Organized Health Care Education/Training Program; EMERGENCY PHYSICIAN Student in an Organized Health Care Education/Training Program; FAMILY PHYSICIAN Family Medicine
PROC: 0F903ZX Drainage of Liver, Percutaneous Approach, Diagnostic (ICD-10-PCS; 2025-01-22)
PROC: 02HV33Z Insertion of Infusion Device into Superior Vena Cava, Percutaneous Approach (ICD-10-PCS; 2025-01-25)
DX: A40.8 Other streptococcal sepsis (principal); K75.0 Abscess of liver; N17.9 Acute kidney failure, unspecified; Z68.41 Body mass index [BMI] 40.0-44.9, adult; R65.20 Severe sepsis without septic shock; K52.9 Noninfective gastroenteritis and colitis, unspecified; Z11.52 Encounter for screening for COVID-19; E66.01 Morbid (severe) obesity due to excess calories; K76.0 Fatty (change of) liver, not elsewhere classified; Z86.0100 Personal history of colon polyps, unspecified
CPT/HCPCS: 88305; 49405; 70355; 71045; 74177; 74183; 80048; 80053; 81003; 81015; 82105; 82248; 82550; 83036; 83605; 83690; 83735; 84484; 85025; 85027; 85610; 86705; 86706; 86709; 86803; 87040; 87045; 87046; 87070; 87075; 87077; 87086; 87186; 87205; 87324; 87340; 87389; 87427; 87449; 87502; 87811; 88112; 89055; 93005; 93306; 96361; 96365; 96375; 97116; 97162; 97166; 97530; 97535; 99152; 99153; 99285; A9575; C1729; C1769; Q9967

== ENCOUNTER → 2025-01-29 12:24 | Outpatient (REF) | payer OTHER, SELFPAY ==
[2025-01-29 12:45] VITALS: BP 143/73; BP_SYST 90
[2025-01-29 13:12] VITALS: BP 142/67; BP_SYST 86
[2025-01-29 13:25] VITALS: BP 142/67
== END ==
LOC: RADI 12:24
PROVIDERS: ATTENDING PHYSICIAN Radiology Diagnostic Radiology; FAMILY PHYSICIAN Family Medicine
DX: Z46.82 Encounter for fitting and adjustment of non-vascular catheter (principal); K75.0 Abscess of liver
CPT/HCPCS: 49424; 76080

== ENCOUNTER 2025-05-20 06:29 | Day surgery (SDC) | payer OTHER, SELFPAY | END 2025-05-20 14:02 | disposition home or self-care (01) | LOC: GI 06:29 | PROVIDERS: ATTENDING PHYSICIAN Internal Medicine Gastroenterology | DX: Z12.11 Encounter for screening for malignant neoplasm of colon (principal); K64.8 Other hemorrhoids; K57.30 Diverticulosis of large intestine without perforation or abscess without bleeding; D12.3 Benign neoplasm of transverse colon; D12.4 Benign neoplasm of descending colon; Z86.0101 Personal history of adenomatous and serrated colon polyps | CPT/HCPCS: 45385; 45380; 88305 ==

== ENCOUNTER → 2025-07-09 14:15 | Outpatient (REF) | payer OTHER, SELFPAY | LOC: HWWDC 14:15 | PROVIDERS: ATTENDING PHYSICIAN Family Medicine | DX: Z12.31 Encounter for screening mammogram for malignant neoplasm of breast (principal) | CPT/HCPCS: 77063; 77067 ==

== ENCOUNTER → 2025-07-21 10:48 | Outpatient (REF) | payer OTHER, SELFPAY | LOC: WDC 10:48 | PROVIDERS: ATTENDING PHYSICIAN Family Medicine | DX: R92.8 Other abnormal and inconclusive findings on diagnostic imaging of breast (principal) | CPT/HCPCS: 77065 ==